=== PATIENT | male | born 1955 | race Caucasian/White ===

== ENCOUNTER → 2020-11-12 07:42 | Outpatient (CLI) | payer OTHER, SELFPAY ==
--- NOTE | 2020-11-12 07:43 | CT_ITS ---
PROCEDURE: CT HEART W CALCIUM SCORE CLINICAL HISTORY: eval for cad COMPARISON: No exams were available for comparison TECHNIQUE: Axial images obtained with sagittal and coronal reformats. All CT scans at the facility use one or more dose reduction, viz: automated exposure control, ma/kV adjustment per patient size (including targeted exams where dose is matched to indication, i.e. head), or iterative reconstruction technique. FINDINGS: The coronary artery calcification score is 229. Moderate calcific plaque burden with high cardiovascular disease risk. There are COPD changes with some centrilobular emphysema in the lung base on the left with some scarring and mild bronchial thickening. A noncalcified nodule is present in the left lower lobe at the major fissure region measuring 10 mm with an additional nodule in the left lower lobe posterior laterally at 5 mm. What appears to represent a hemangioma involves the T8 vertebral body. Aortic valve calcifications are noted as well. There is a 1.5 cm left renal cyst. IMPRESSION: Moderate calcific plaque burden with high cardiovascular disease risk COPD with centrilobular emphysematous change in the left lung base with indeterminate 10 mm nodule in the left lower lobe. Left lower lobe scarring also suspected. Suggest dedicated chest CT with contrast for further evaluation. Dictated by: Eric Hodges MD 11/12/2020 11:23 Eric Hodges MD in [place] 11/12/2020 11:23
--- NOTE | 2020-11-12 08:04 | CA_ITS ---
APPROVED REPORT School Treasurer: KRISTIN Laterality: Bilateral Study Quality: Adequate Indications: carotid bruit Risk Factors Hypertension: Hyperlipidemia Smoking Doppler Spectral Velocity Analysis ECA (R) 166.80/23.50 cm/s ECA (L) 122.30/24.10 cm/s dICA (R) 78.60/29.20 cm/s dICA (L) 118.50/28.90 cm/s Yanick (R) 102.50/35.20 cm/s Yanick (L) 93.40/30.80 cm/s pICA (R) 87.50/23.20 cm/s pICA (L) 77.10/21.20 cm/s dCCA (R) 79.70/18.00 cm/s dCCA (L) 79.30/17.20 cm/s pCCA (R) 105.40/18.00 cm/s pCCA (L) 79.30/21.70 cm/s Vert (R) 32.60/9.10 cm/s Vert (L) 68.40/17.30 cm/s ICA/CCA 1.29 ICA/CCA 1.49 Findings Study suggets 20-49% stenosis of the right internal carotid artery. Study suggets <20% stenosis of the left internal carotid artery. Duplex evaluation demonstrates antegrade flow of the bilateral vertebral arteries. B-Mode Ultrasound demonstrates mild to moderate intraluminal plaque in the right internal carotid artery. Conclusion Study suggets 20-49% stenosis of the right internal carotid artery. Study suggets <20% stenosis of the left internal carotid artery. Duplex evaluation demonstrates antegrade flow of the bilateral vertebral arteries. B-Mode Ultrasound demonstrates mild to moderate intraluminal plaque in the right internal carotid artery. Electronically signed by : Eric Hodges MD 11/12/2020 16:03:19
--- NOTE | 2020-11-12 08:04 | CA_ITS ---
APPROVED REPORT EXAM: Comprehensive 2D, Doppler, and color-flow Echocardiogram Back Tacker: Emily Ospina CRT Ht: 5 ft 11 in Wt: 178lbs BSA: 2.01 BP: 178/89 mmHg Indications: Abnormal ECG, Hyperlipidemia, Hypertension/HDD, smoker 2D Dimensions LVOT 2.03 cm (M/F) 1.5-2.5 LA Volume 72.10 mL LA Volume Index 35.90 mL/m2 (M/F) 16-34 M-Mode Dimensions RVDd 3.29 cm (0.9-2.6) LA Diam 4.88 cm (1.9-4.0) LVDd 5.01 cm (3.5-5.7) Ao Diam 3.71 cm (2.0-3.7) LVDs 3.15 cm (3.5-5.7) IVSd 1.22 cm (0.6-1.1) PWd 1.04 cm (0.6-1.1) EF (Teich) 66.80% FS 37.10% EDV (Teich) 118.80 mL ESV (Teich) 39.40 mL LV Diastology E Decel Time 237.00 (160-240 msec) E/A Ratio 2.74 MED E' 5.20 (< 7 cm/sec) MED A' 11.80 cm/s E'/MED E' Ratio 19.73 (>14) LAT E' 9.70 (<10 cm/sec) LAT A' 7.60 cm/s E/LAT E' Ratio 10.58 (>14) Aortic Valve LVOT Max 159.00 (70-110 cm/s) LVOT VTI 35.62 cm AoV Peak Martin. 212.00 (50-130 cm/s) AO Peak GR. 18.00 mmHg AO Mean GR. 7.70 (<5 mmHg) AO VTI 46.21 (18-25 cm) IRA (VTI) 2.49 (2.5-4.5 cm2) Mitral Valve MV E Max Martin. 103.00 (40-130 cm/s) MV A Velocity 37.00 (40-130 cm/s) E/A Ratio 2.74 MV Decel. Time 237.00 (160-240 ms) MV PHT 69.00 ms Pulmonary Valve PV Peak Velocity 135.00 (50-150 cm/s) Tricuspid Valve TR P. Velocity 283.00 cm/s Left Ventricle Left atrium is mildly enlarged, left ventricle is normal size, mild concentric left ventricular hypertrophy, visually estimated ejection fraction 55% with no regional wall motion abnormality, grade 1 diastolic dysfunction seen without tissue Doppler evidence of raise left atrial pressure. Right Ventricle Right atrium and right ventricle are mildly enlarged with normal contractility. Aortic Valve Aortic valve is minimally thickened and fibrosed, there is no aortic stenosis or aortic insufficiency. Mitral Valve Mitral valve grossly normal, there is mild mitral regurgitation. Tricuspid Valve Tricuspid valve grossly normal, there is mild tricuspid regurgitation, tricuspid regurgitation jet velocity is inadequate for calculation of the right ventricular systolic pressure. Pulmonic Valve Pulmonic valve is poorly visualized. Great Vessels Aortic root is normal size. Pericardium No significant pericardial effusion noted. Conclusion 1. Mild biatrial enlargement, normal left ventricular size, mild concentric left ventricular hypertrophy, visually estimated ejection fraction 55% with no regional wall motion abnormality, grade 1 diastolic dysfunction seen without tissue Doppler evidence of raise left atrial pressure. 2. Mildly enlarged right ventricle with normal contractility. 3. Thickened and calcified aortic valve without aortic stenosis or aortic insufficiency. 4. Mild mitral and tricuspid regurgitation. 4. No significant pericardial effusion noted. Electronically signed by : Frandy Rodriguez, 11/12/2020 16:06:57
== END ==
PROVIDERS: PCP Nurse Practitioner Family; Visit Provider Internal Medicine Cardiovascular Disease
DX: R01.1 Cardiac murmur, unspecified (principal); R09.89 Other specified symptoms and signs involving the circulatory and respiratory systems; R94.31 Abnormal electrocardiogram [ECG] [EKG]; E78.5 Hyperlipidemia, unspecified; I10 Essential (primary) hypertension; N28.9 Disorder of kidney and ureter, unspecified; Z86.39 Personal history of other endocrine, nutritional and metabolic disease; Z87.891 Personal history of nicotine dependence; Z13.6 Encounter for screening for cardiovascular disorders
CPT/HCPCS: 75571; 93306; 93880

== ENCOUNTER → 2020-11-12 09:15 | Outpatient (CLI) | payer SELFPAY | PROVIDERS: PCP Nurse Practitioner Family; Visit Provider Internal Medicine Cardiovascular Disease | DX: R01.1 Cardiac murmur, unspecified (principal); R94.31 Abnormal electrocardiogram [ECG] [EKG]; R09.89 Other specified symptoms and signs involving the circulatory and respiratory systems; E78.5 Hyperlipidemia, unspecified ==

== ENCOUNTER → 2020-11-27 09:58 | Outpatient (CLI) | payer OTHER, SELFPAY ==
[2020-11-27 11:58] LABS: Anion Gap 12.8 mEq/L (5-15); Blood Urea Nitrogen 16 mg/dl (9-20); Calcium 9.7 mg/dl (8.4-10.2); Carbon Dioxide 27 mmol/L (22.0-30.0); Chloride 107 mmol/L (98-107); Estimated Glomerular Filt Rate 68 ml/min (>60); GFR (African American) 82 ML/MIN (>60); Glucose 95 mg/dl (74-100); Potassium 4.8 mmoL/L (3.5-5.1); Sodium 142 mmol/L (136-145)
== END ==
PROVIDERS: Visit Provider Internal Medicine Cardiovascular Disease
DX: R09.89 Other specified symptoms and signs involving the circulatory and respiratory systems (principal); R01.1 Cardiac murmur, unspecified; R94.31 Abnormal electrocardiogram [ECG] [EKG]; I10 Essential (primary) hypertension; E78.2 Mixed hyperlipidemia; N28.9 Disorder of kidney and ureter, unspecified; Z86.39 Personal history of other endocrine, nutritional and metabolic disease; Z87.891 Personal history of nicotine dependence
CPT/HCPCS: 36415; 80048

== ENCOUNTER → 2020-12-15 11:51 | Outpatient (CLI) | payer OTHER, SELFPAY ==
--- NOTE | 2020-12-15 | CA_ITS ---
APPROVED REPORT Exam: Exercise Treadmill Technologist: Katharine Cordova Ht: 5 ft 11 in Wt: 177 lbs BSA: 2.00 m2 HR: 44 bpm BP: 167/75 mmHg Indications: Abnormal ekg, CAD Medical History Medications: Amlodipine,,,,, Lisinopril,,,,, Aspirin,,,,, BisOPROLOL,,,,, RoSUVASTATIN,,,,, Levothyoxine,,,,, Stress Test Details Test: Howard HR Resting HR: 46 bpm Max Heart Rate (APMHR): 157.106056 bpm Max HR Achieved: 92 bpm Target HR (85% APMHR): 133.657285 bpm % of APMHR: 58.60 Recovery HR: 51 bpm BP Resting BP: 167.0/75.0 mmHg Max BP: 190.0/80.0 mmHg Recovery BP: 147.0/69.0 mmHg ECG Resting ECG: Marked sinus bradycardia, First degree AV block, LVH, NS ST abnormalities, PAC, PVC Clinical Exercise duration: 08:45 min Highest Stage Achieved: Exercise capacity: 10.1 METs Stress ECG Conclusion Patient exercised 8:45 on Howard protocol. Test stopped due to shortness of air, leg fatigue. Symptoms: No chest pain. Arrhythmias/Ectopy: Occasional PAC and PVC. ST-T Changes: Mild exaggeration of baseline ST abnormalities with a total of [address] depression inferiorly and laterally. Conclusion: Non-diagnostic Exercise stress. Blunted heart rate response on Bisoprolol. Myoview images reported separately. Test Summary RECOVERY 04:00 0.0 0.0 53 . 157/ 69 . . REST . . . . . . . Standing REST 04:50 0.0 0.0 46 . 167/ 75 . . Stage 1 01:00 10.0 1.7 61 . . . . Stage 1 02:00 10.0 1.7 65 . . . . Stage 1 03:00 10.0 1.7 69 . 190/ 80 . . Stage 2 01:00 12.0 2.5 72 . . . . Stage 2 02:00 12.0 2.5 76 . . . . Stage 2 03:00 12.0 2.5 77 . 190/ 76 . . Stage 3 01:00 14.0 3.4 82 . . . . Stage 3 . . . . . . . Myoview Injected Stage 3 02:00 14.0 3.4 89 . . . . Stage 3 02:45 14.0 3.4 90 . . . Stop exercise at 08:45 RECOVERY 01:00 0.0 0.0 76 . 182/ 60 . . RECOVERY 02:00 0.0 0.0 66 . 182/ 60 . . RECOVERY 03:00 0.0 0.0 56 . 182/ 60 . . RECOVERY 04:00 0.0 0.0 53 . 157/ 69 . . RECOVERY 05:00 0.0 0.0 50 . 157/ 69 . . RECOVERY 05:34 0.0 0.0 52 . 147/ 69 . . Electronically signed by : Frandy Rodriguez MD 12/15/2020 19:25:11
--- NOTE | 2020-12-15 11:51 | NM_ITS ---
APPROVED REPORT Exam: Nuclear Stress Test Indication: abn ekg Patient Location: Outpatient Stress Tech: Katharine Cordova IN Tech:Giulia More, CECIT, RT (R)(N) Ht: 5 ft 11 in Wt: 172 lbs HR: 44 bpm BP: 167/75 mmHg BSA: 1.98 m2 BMI: 23.9 History: abn ekg Procedure: Patient exercised on Howard protocol 8.45 minutes and sec, resting heart rate 44 bpm, resting blood pressure 167/75 mmHg, with exercise maximum heart rate achived was 92 bpm which is 59 % of the maximum predicted heart rate and blood pressure was 190/80 mmHg. Test was stopped due to soa & leg fatigue. Patient denied any complaint of chest pain. Patient has Good exercise capacity, achieved 10.1 METs of workload on treadmill, the blood pressure response to exercise was Adequate. Electrocardiogram Resting electrocardiogram showed sinus rhythm, with exercise there is less than 1.[address] segment depression noted from the baseline EKG. The EKG portion of the exercise Myoview was nondiagnostic as patient did not achieve the target heart rate. Cardiac Stress and Resting SPECT Images: Cardiac Stress and Resting SPECT images were obtained using technetium 99m Myoview 32.6 mCi stress and 10.36 mCi at rest. Gated SPECT for analysis of segmental wall motion and calculation of the ejection fraction also done. Prone images were also obtained. Cardiac stress and resting SPECT images show uniform myocardial activity without segmental perfusion abnormality, computer derived ejection fraction is 51% with no regional wall motion abnormality, right ventricle is normal size and contractility. Conclusion: 1. The EKG portion of the exercise Myoview was nondiagnostic as patient did not achieve the target heart rate, patient has good exercise capacity achieved 10.1 METs of workload on treadmill, the blood pressure response to exercise was adequate, there was no exercise-induced chest discomfort. 2. No scintigraphic evidence of reversible ischemia seen at this level of exercise, computer derived ejection fraction 51% with no regional wall motion abnormality, right ventricle is normal size and contractility. Electronically signed by : Frandy Rodriguez MD 12/15/2020 19:40:35
--- NOTE | 2020-12-15 13:33 | HMH.ITSHM ---
Current Home Medications as stated by this patient Asa Galeana or patient portal representative. []BISOPROLOL ROSUVASTATIN ASA AMLODIPINE LEVOTHYROXINE LISINOPRIL
== END ==
PROVIDERS: PCP Nurse Practitioner Family; Visit Provider Internal Medicine Cardiovascular Disease
DX: R01.1 Cardiac murmur, unspecified (principal); R94.31 Abnormal electrocardiogram [ECG] [EKG]; R09.89 Other specified symptoms and signs involving the circulatory and respiratory systems; I10 Essential (primary) hypertension; E78.2 Mixed hyperlipidemia; N28.9 Disorder of kidney and ureter, unspecified; Z86.39 Personal history of other endocrine, nutritional and metabolic disease; Z87.891 Personal history of nicotine dependence
CPT/HCPCS: 78452; 93017; A9502

== ENCOUNTER → 2021-01-07 07:02 | Outpatient (CLI) | payer OTHER, SELFPAY ==
[2021-01-07 13:17] LABS: Chloride 104 mmol/L (98-107); Potassium 4.6 mmoL/L (3.5-5.1); Sodium 141 mmol/L (136-145)
[2021-01-07 13:20] LABS: Anion Gap 13.6 mEq/L (5-15); Blood Urea Nitrogen 16 mg/dl (9-20); Carbon Dioxide 28 mmol/L (22.0-30.0); Estimated Glomerular Filt Rate 68 ml/min (>60); GFR (African American) 82 ML/MIN (>60)
[2021-01-07 13:21] LABS: Calcium 9.6 mg/dl (8.4-10.2); Glucose 96 mg/dl (74-100)
== END ==
PROVIDERS: Visit Provider Internal Medicine Cardiovascular Disease
DX: R09.89 Other specified symptoms and signs involving the circulatory and respiratory systems (principal); R01.1 Cardiac murmur, unspecified; I10 Essential (primary) hypertension; E78.5 Hyperlipidemia, unspecified; N28.9 Disorder of kidney and ureter, unspecified; R93.1 Abnormal findings on diagnostic imaging of heart and coronary circulation; R94.31 Abnormal electrocardiogram [ECG] [EKG]; Z86.39 Personal history of other endocrine, nutritional and metabolic disease; Z87.891 Personal history of nicotine dependence
CPT/HCPCS: 36415; 80048

== ENCOUNTER → 2021-01-19 07:07 | Outpatient (CLI) | payer OTHER, SELFPAY ==
[2021-01-19 13:56] LABS: Basophils # 0.1 K/mm3 (0-0.2); Basophils % 1.2 % (0.1-2.0); Eosinophils # 0.6 K/mm3 (0.0-0.4); Eosinophils % 10.5 % (0.1-12.0); Hematocrit 46.3 % (42.0-52.0); Hemoglobin 15.2 g/dL (14.1-18.0); Lymphocytes # 2.3 K/mm3 (0.7-4.5); Lymphocytes % 38.6 % (10-50); Mean Corpuscular HGB Conc 32.9 g/dL (31.8-35.4); Mean Corpuscular Hemoglobin 29.3 pg (27.0-31.2); Mean Corpuscular Volume 89.3 fl (80-94); Mean Platelet Volume 9.1 fl (7.4-10.4); Monocytes # 0.4 K/mm3 (0.1-1.0); Monocytes % 7.2 % (1.7-9.3); Neutrophils # 2.5 K/mm3 (1.8-7.8); Neutrophils % 42.6 % (37.0-80.0); Platelet Count 366 K/mm3 (142-424); Red Blood Count 5.19 M/mm3 (4.60-6.20); Red Cell Distribution Width 13.3 % (11.5-17.5); White Blood Count 5.9 K/mm3 (4.8-10.8)
[2021-01-19 14:02] LABS: Chloride 105 mmol/L (98-107)
[2021-01-19 14:03] LABS: Potassium 4.3 mmoL/L (3.5-5.1); Sodium 140 mmol/L (136-145)
[2021-01-19 14:05] LABS: Alanine Aminotransferase 31 U/L (12-78); Albumin Level 3.9 g/dl (3.5-5.0); Albumin/Globulin Ratio 1.3 (1.1-1.8); Alkaline Phosphatase 92 U/L (38-126); Anion Gap 12.3 mEq/L (5-15); Aspartate Amino Transferase 35 U/L (17-59); Bilirubin,Total 0.3 mg/dl (0.2-1.3); Blood Urea Nitrogen 16 mg/dl (9-20); Calcium 9.8 mg/dl (8.4-10.2); Carbon Dioxide 27 mmol/L (22.0-30.0); Cholesterol 145 mg/dl (140-200); Estimated Glomerular Filt Rate 75 ml/min (>60); GFR (African American) 91 ML/MIN (>60); Globulin 3.1 g/dL (1.3-3.2); Glucose 96 mg/dl (74-100); Triglycerides 95 mg/dl (30-150); VLDL Cholesterol 19 mg/dL (0-40)
[2021-01-19 14:06] LABS: Chol/HDL Ratio 3.5 (1-3.5); HDL Cholesterol 42 mg/dl (40-60)
[2021-01-19 14:16] LABS: Direct LDL Cholesterol 71.37 mg/dL (100-129)
[2021-01-19 14:23] LABS: Triiodothryronine (T3) Uptake 33 % (23.5-40.5)
[2021-01-19 14:24] LABS: Free Thyroxine Index 4.5 ug/dL (5.93-13.13); T4 (Thyroxine) 13.6 ug/dl (5.53-11.0)
[2021-01-19 14:37] LABS: Thyroid Stimulating Hormone 0.05 uIU/mL (0.465-4.68)
== END ==
PROVIDERS: Visit Provider Nurse Practitioner Family
DX: I10 Essential (primary) hypertension (principal); E03.9 Hypothyroidism, unspecified; E78.5 Hyperlipidemia, unspecified
CPT/HCPCS: 36415; 80053; 80061; 84436; 84443; 84479; 85025

== ENCOUNTER → 2021-02-26 14:08 | Outpatient (CLI) | payer OTHER, SELFPAY ==
--- NOTE | 2021-02-26 14:08 | CT_ITS ---
PROCEDURE: CT CHEST WO CON CLINICAL INDICATION: 3-month follow-up for lung nodule COMPARISON: CT CT HEART W CALCIUM SCORE from 11/12/2020 TECHNIQUE: Axial images obtained with sagittal and coronal reformats. All CT scans at the facility use one or more dose reduction, viz: automated exposure control, ma/kV adjustment per patient size (including targeted exams where dose is matched to indication, i.e. head), or iterative reconstruction technique. FINDINGS: HEART AND MEDIASTINAL STRUCTURES: Coronary artery calcifications. Aortic valve calcifications. LUNGS AND PLEURAL SPACES: COPD changes with scattered areas of scarring. In the left lung base there is a linear area of density at 1.70 cm by 0.5 cm likely related to some bronchovascular thickening. A 7 mm opacity is present in left lung base laterally also may be related to bronchovascular thickening as opposed to a true nodule. No suspicious nodule apparent. There is some scarring in the lingula. BONY STRUCTURES: Degenerative changes thoracic spine with hemangioma involvement T8. UPPER ABDOMEN: Left renal cyst at 1 and 2 cm. ADDITIONAL FINDINGS: No other significant abnormalities. IMPRESSION: COPD with scattered areas of scarring. Linear opacities in the left lung base which may be related to bronchovascular thickening/scarring. No suspicious nodule evident. Suggest 12 month follow-up to confirm stability. Coronary artery and aortic valve calcification. Dictated by: Eric Hodges MD 02/28/2021 09:26 Eric Hodges MD in [place] 02/28/2021 09:26
--- NOTE | 2021-02-26 15:00 | PC.NURSE ---
PFT Completed without complications. Albuterol 0.083% given via HHN, per protocol, tolerated tx well
== END ==
PROVIDERS: PCP Nurse Practitioner Family; Visit Provider Internal Medicine Pulmonary Disease
DX: R91.8 Other nonspecific abnormal finding of lung field (principal)
CPT/HCPCS: 71250; 94060; 94726; 94729

== ENCOUNTER 2023-08-31 10:30 | Outpatient (CLI) | payer OTHER, SELFPAY ==
[2023-08-31 11:16] LABS: Alanine Aminotransferase 23 U/L (12-78); Alkaline Phosphatase 71 U/L (38-126); Aspartate Amino Transferase 31 U/L (17-59); Bilirubin,Direct 0.1 mg/dl (0.0-0.4); Bilirubin,Indirect 0.4 mg/dL (0.0-0.9); Bilirubin,Total 0.5 mg/dl (0.2-1.3); Bilirubin,Unconjugated 0.4 mg/dL (0.0-1.1); Chol/HDL Ratio 3.5 (1-3.5); Cholesterol 185 mg/dl (140-200); HDL Cholesterol 53 mg/dl (40-60); Total Protein,Serum 7.1 g/dl (6.3-8.2); Triglycerides 88 mg/dl (30-150); VLDL Cholesterol 18 mg/dL (0-40)
[2023-08-31 11:27] LABS: Direct LDL Cholesterol 106.33 mg/dL (100-129)
== END 2023-08-31 23:59 | disposition home or self-care (01) ==
LOC: LAB 10:31
PROVIDERS: PCP Nurse Practitioner; Visit Provider Nurse Practitioner Family
DX: R00.1 Bradycardia, unspecified (principal); I65.29 Occlusion and stenosis of unspecified carotid artery; R09.89 Other specified symptoms and signs involving the circulatory and respiratory systems; I11.9 Hypertensive heart disease without heart failure; I25.10 Atherosclerotic heart disease of native coronary artery without angina pectoris; R94.31 Abnormal electrocardiogram [ECG] [EKG]; N28.9 Disorder of kidney and ureter, unspecified; E78.2 Mixed hyperlipidemia; Z87.891 Personal history of nicotine dependence
CPT/HCPCS: 36415; 80061; 80076

== ENCOUNTER 2023-09-07 12:43 | Outpatient (CLI) | payer OTHER, SELFPAY ==
--- NOTE | 2023-09-07 12:43 | CA_ITS ---
FINAL REPORT TECHNIQUE: Color Doppler, duplex Doppler and lujan scale sonography of the bilateral neck vasculature was performed. Velocities were measured in the carotid arteries. Stenosis evaluation based on velocity criteria. CLINICAL HISTORY: KEVIN, HTN, HLD, murmur, ex smoker. COMPARISON: None FINDINGS: The peak systolic velocity of the right common carotid artery is 107 cm/sec and internal carotid artery 109 cm/sec. The diastolic velocity in the internal carotid artery is 34 cm/sec. The ICA/CCA ratio is 1.98. Visually, a small amount of plaque is seen. These findings are consistent with less than 50% stenosis. The external carotid artery is patent. The right vertebral artery is patent with antegrade flow. The peak systolic velocity of the left common carotid artery is 127 cm/sec and internal carotid artery 79 cm/sec. The diastolic velocity in the internal carotid artery is 31 cm/sec. The ICA/CCA ratio is 1.15. Visually, a small amount of plaque is seen. These findings are consistent with less than 50% stenosis. The external carotid artery is patent. The left vertebral artery is patent with antegrade flow. IMPRESSION: No evidence of significant carotid stenosis. Bilateral patent vertebral arteries. If indicated, CTA or MRA could further evaluate. Reviewed, Interpreted and Dictated by Abdias Mendes MD Transcribed by Deborah Woodall Authenticated and [facility]
== END 2023-09-07 23:59 | disposition home or self-care (01) ==
PROVIDERS: PCP Nurse Practitioner; Visit Provider Nurse Practitioner Family
DX: R09.89 Other specified symptoms and signs involving the circulatory and respiratory systems (principal); I65.29 Occlusion and stenosis of unspecified carotid artery; R00.1 Bradycardia, unspecified; I11.9 Hypertensive heart disease without heart failure; I25.10 Atherosclerotic heart disease of native coronary artery without angina pectoris; R94.31 Abnormal electrocardiogram [ECG] [EKG]; N28.9 Disorder of kidney and ureter, unspecified; E78.2 Mixed hyperlipidemia; Z87.891 Personal history of nicotine dependence
CPT/HCPCS: 93880

== ENCOUNTER 2024-03-21 11:48 | Outpatient (CLI) | payer OTHER, SELFPAY ==
[2024-03-21 12:42] LABS: Alanine Aminotransferase 21 U/L (12-78); Albumin Level 3.9 g/dl (3.5-5.0); Alkaline Phosphatase 66 U/L (38-126); Aspartate Amino Transferase 32 U/L (17-59); Bilirubin,Direct 0.3 mg/dl (0.0-0.4); Bilirubin,Indirect 0.2 mg/dL (0.0-0.9); Bilirubin,Total 0.5 mg/dl (0.2-1.3); Bilirubin,Unconjugated 0.2 mg/dL (0.0-1.1); Chol/HDL Ratio 4.1 (1-3.5); Cholesterol 169 mg/dl (140-200); HDL Cholesterol 41 mg/dl (40-60); Total Protein,Serum 6.7 g/dl (6.3-8.2); Triglycerides 80 mg/dl (30-150); VLDL Cholesterol 16 mg/dL (0-40)
[2024-03-21 12:53] LABS: Direct LDL Cholesterol 107.75 mg/dL (100-129)
== END 2024-03-21 23:59 | disposition home or self-care (01) ==
LOC: LAB 11:49
PROVIDERS: PCP Nurse Practitioner; Visit Provider Nurse Practitioner Family
DX: I65.23 Occlusion and stenosis of bilateral carotid arteries (principal); R00.1 Bradycardia, unspecified; I25.10 Atherosclerotic heart disease of native coronary artery without angina pectoris; R94.31 Abnormal electrocardiogram [ECG] [EKG]; N28.9 Disorder of kidney and ureter, unspecified; R09.89 Other specified symptoms and signs involving the circulatory and respiratory systems; I10 Essential (primary) hypertension; E78.2 Mixed hyperlipidemia; I11.9 Hypertensive heart disease without heart failure
CPT/HCPCS: 36415; 80061; 80076

== ENCOUNTER 2024-09-19 09:57 | Outpatient (CLI) | payer OTHER, SELFPAY ==
[2024-09-19 10:55] LABS: Basophils # 0.1 K/mm3 (0-0.2); Eosinophils # 0.5 Kmm3 (0.0-0.4); Eosinophils % 9.6 % (0.1-12.0); Hematocrit 42.9 % (42.0-52.0); Hemoglobin 14.1 g/dL (14.1-18.0); Immature Granulocytes # 0.02 10^3uL; Immature Granulocytes % 0.4 %; Lymphocytes # 1.6 K/mm3 (0.7-4.5); Lymphocytes % 31.3 % (10-50); Mean Corpuscular HGB Conc 32.9 g/dL (31.8-35.4); Mean Corpuscular Hemoglobin 28.6 pg (27.0-31.2); Mean Platelet Volume 9.6 fl (7.4-10.4); Monocytes # 0.6 K/mm3 (0.1-1.0); Neutrophils # 2.3 K/mm3 (1.8-7.8); Neutrophils % 46.7 % (37.0-80.0); Nucleated Red Blood Cells # 0 10^3/uL; Nucleated Red Blood Cells % 0 %; Platelet Count 335 K/mm3 (142-424); Red Blood Count 4.93 M/mm3 (4.60-6.20); Red Cell Distribution Width-SD 41.1 fL
[2024-09-19 11:11] LABS: Alanine Aminotransferase 29 U/L (12-78); Alkaline Phosphatase 74 U/L (38-126); Anion Gap 12.6 mEq/L (5-15); Aspartate Amino Transferase 40 U/L (17-59); Bilirubin,Direct 0.2 mg/dl (0.0-0.4); Bilirubin,Indirect 0.4 mg/dL (0.0-0.9); Bilirubin,Total 0.6 mg/dl (0.2-1.3); Bilirubin,Unconjugated 0.4 mg/dL (0.0-1.1); Blood Urea Nitrogen 19 mg/dl (9-20); Calcium 9.8 mg/dl (8.4-10.2); Carbon Dioxide 27 mmol/L (22.0-30.0); Chloride 107 mmol/L (98-107); Chol/HDL Ratio 2.4 (1-3.5); Cholesterol 94 mg/dl (140-200); Estimated Glomerular Filt Rate 67 ml/min (>60); GFR (African American) 81 ML/MIN (>60); Glucose 89 mg/dl (74-100); HDL Cholesterol 39 mg/dl (40-60); Potassium 4.6 mmoL/L (3.5-5.1); Sodium 142 mmol/L (136-145); Total Protein,Serum 7.1 g/dl (6.3-8.2); Triglycerides 69 mg/dl (30-150); VLDL Cholesterol 14 mg/dL (0-40)
[2024-09-19 11:22] LABS: Direct LDL Cholesterol 31.01 mg/dL (100-129)
[2024-09-19 11:29] LABS: Free T4 (Free Thyroxine) 1.85 ng/dl (0.78-2.19)
[2024-09-19 11:42] LABS: Thyroid Stimulating Hormone 0.54 uIU/mL (0.465-4.68)
== END 2024-09-19 23:59 | disposition home or self-care (01) ==
LOC: LAB 09:58
PROVIDERS: PCP Nurse Practitioner; Visit Provider Nurse Practitioner Family
DX: I25.10 Atherosclerotic heart disease of native coronary artery without angina pectoris (principal); R00.1 Bradycardia, unspecified
CPT/HCPCS: 36415; 80048; 80061; 80076; 84439; 84443; 85025

== ENCOUNTER 2025-03-27 07:36 | Outpatient (CLI) | payer OTHER, SELFPAY ==
--- OUTSIDE RECORDS SUMMARY | 2025-03-27 07:39 | XMS_ITS | Continuity of Care Document ---
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 Plan of Treatment Reminders Order Date Submit Date Provider Last Modified By Organization Details Last Modified Time Details Appointments None recorded. Lab lipid panel, serum [facility]24 025 [facility] [address] [place], [address], 5 08:11:46 CBC w/ auto diff 2024 025 [place] [facility] [address] [place] [address], [id number], 5 08:11:45 CMP, serum or plasma 2024 025 [place] [facility] [address] [place] [address], [id number], 5 08:11:46 TSH + free T4, serum 2024 025 [place] [facility] [address] [place] [address], [address], 5 08:11:45 HbA1c (hemoglobin A1c), blood 2024 025 [place] [facility] [address] [place] [address], [address], 08:11:47 vitamin D, 25-hydroxy, total, serum 2024 [facility]), [address] [place] [address], [address], 08:11:48 PSA, total, serum or plasma 2024 [facility]), [address] [place] [address], [address], 5 08:11:48 cobalamin and folate panel, serum 2024 [facility]), [address] [place] [address], [address], 08:11:47 Referral None recorded. Procedures None recorded. Surgeries None recorded. Imaging None recorded. Medication Orders ergocalcife rol (vitamin D2) 1,250 mcg (50,000 unit) capsule 2024 [facility], [address] [place] [address], [id number], 13:03:04 amlodipine 5 mg tablet 2024 [facility], [address] [place] [address], [address], 13:03:00 aspirin 81 mg tablet,abbie yed release 2024 [facility], [address] [place] [address], [address], 13:03:03 bisoprolol fumarate 5 mg tablet 2024 [facility], [address] [place] [address], [id number], 13:03:01 lisinopril 20 mg tablet 2024 [facility], [address] [place] [address], [id number], 13:03:00 triamterene 37.5 mg-hydrochl orothiazide 25 mg tablet 2024 025 [facility], [address] [place] [address], [id number], 13:03:03 levothyroxi ne 137 mcg tablet 2024 025 [facility], [address] [place] [address], [id number], 13:03:02 Patient TargetsNo targets recorded. Patient InstructionsNo instructions recorded. Reason for Referral None Reported. Results Created Date Observation Date Name Description Value Unit Range Abnormal Flag Note LastModifiedBy Organization Detail LastModifiedTime 02/22/2002/22/2025 TSH+F REE T4 TSH 0.543 uIU/m L 0.450- 4.500 normal Not Available [facility] ([facility]) [address] [place], [address], 02/22/2025 08:11:44 02/22/2002/22/2025 TSH+F REE T4 T4,free(dire ct) 1.60 NG/dL 0.82-1 .77 normal Not Available [facility] ([facility]) [address] [place], [address], 02/22/2025 08:11:44 02/22/2002/22/2025 CBC WITH DIFFE RENTI AL/PL ATELE T WBC 4.9 x10e3 /uL 3.4-10 .8 normal Not Available [facility] ([facility]) [address] [place], [address], 02/22/2025 08:11:45 02/22/20 25 02/22/2025 CBC WITH DIFFE RENTI AL/PL ATELE T RBC 4.81 x10e6 /uL 4.14-5 .80 normal Not Available [facility] ([facility]) [address] [place], [address], 02/22/2025 08:11:45 02/22/20 25 02/22/2025 CBC WITH DIFFE RENTI AL/PL ATELE T hemoglobin 14.0 g/dL 13.0-1 7.7 normal Not Available [facility] ([facility]) [address] [place], [address], 02/22/2025 08:11:45 02/22/2002/22/2025 CBC WITH DIFFE RENTI AL/PL ATELE T hematocrit 44.4 % 37.5-5 1.0 normal Not Available [facility] ([facility]) [address] [place], [address], 02/22/2025 08:11:45 02/22/20 25 02/22/2025 CBC WITH DIFFE RENTI AL/PL ATELE T MCV 92 fL 79-97 normal Not Available [facility] ([facility]) [address] [place], [address], 02/22/2025 08:11:45 02/22/20 25 02/22/2025 CBC WITH DIFFE RENTI AL/PL ATELE T MCH 29.1 pg 26.6-3 3.0 normal Not Available [facility] ([facility]) [address] [place], [address], 02/22/2025 08:11:45 02/22/20 25 02/22/2025 CBC WITH DIFFE RENTI AL/PL ATELE T MCHC 31.5 g/dL 31.5-3 5.7 normal Not Available [facility] ([facility]) [address] [place], [address], 02/22/2025 08:11:45 02/22/20 25 02/22/2025 CBC WITH DIFFE RENTI AL/PL ATELE T RDW 13.1 % 11.6-1 5.4 Not Available [facility] ([facility]) [address] [facility], [place], [address], 02/22/2025 08:11:45 02/22/20 25 02/22/2025 CBC WITH DIFFE RENTI AL/PL ATELE T platelets 318 x10e3 /uL 150-45 0 normal Not Available [facility] ([facility]) [address] [facility], [place], [address], 02/22/2025 08:11:45 02/22/20 25 02/22/2025 CBC WITH DIFFE RENTI AL/PL ATELE T neutrophils 47 % not estab. normal Not Available [facility] ([facility]) [address] [facility], [place], [address], 02/22/2025 08:11:45 02/22/20 25 02/22/2025 CBC WITH DIFFE RENTI AL/PL ATELE T lymphs 32 % not estab. normal Not Available [facility] ([facility]) [address] [facility], [place], [address], 02/22/2025 08:11:45 02/22/20 25 02/22/2025 CBC WITH DIFFE RENTI AL/PL ATELE T monocytes 10 % not estab. normal Not Available [facility] ([facility]) [address] [facility], [place], [address], 02/22/2025 08:11:45 02/22/20 25 02/22/2025 CBC WITH DIFFE RENTI AL/PL ATELE T eos 10 % not estab. normal Not Available [facility] ([facility]) [address] [facility], [place], [address], 02/22/2025 08:11:45 02/22/20 25 02/22/2025 CBC WITH DIFFE RENTI AL/PL ATELE T basos 1 % not estab. normal Not Available [facility] ([facility]) [address] [facility], [place], [address], 02/22/2025 08:11:45 02/22/20 25 02/22/2025 CBC WITH DIFFE RENTI AL/PL ATELE T immature cells MANAGED CARE COORDINATOR Not Available [facility] ([facility]) [address] [facility], [place], [address], 02/22/2025 08:11:45 02/22/20 25 02/22/2025 CBC WITH DIFFE RENTI AL/PL ATELE T neutrophils (absolute) 2.3 x10e3 /uL 1.4-7. 0 normal Not Available [facility] ([facility]) [address] [facility], [place], [address], 02/22/2025 08:11:45 02/22/20 25 02/22/2025 CBC WITH DIFFE RENTI AL/PL ATELE T lymphs (absolute) 1.6 x10e3 /uL 0.7-3. 1 normal Not Available [facility] ([facility]) [address] [facility], [place], [address], 02/22/2025 08:11:45 02/22/20 25 02/22/2025 CBC WITH DIFFE RENTI AL/PL ATELE T monocytes(ab solute) 0.5 x10e3 /uL 0.1-0. 9 normal Not Available [facility] ([facility]) [address] [facility], [place], [address], 02/22/2025 08:11:45 02/22/20 25 02/22/2025 CBC WITH DIFFE RENTI AL/PL ATELE T eos (absolute) 0.5 x10e3 /uL 0.0-0. 4 above high normal Not Available [facility] ([facility]) [address] [facility], [place], [address], 02/22/2025 08:11:45 02/22/20 25 02/22/2025 CBC WITH DIFFE RENTI AL/PL ATELE T baso (absolute) 0.1 x10e3 /uL 0.0-0. 2 normal Not Available [facility] ([facility]) [address] [facility], [place], [address], 02/22/2025 08:11:45 02/22/20 25 02/22/2025 CBC WITH DIFFE RENTI AL/PL ATELE T immature granulocytes 0 % not estab. Not Available [facility] ([facility]) [address] [facility], [place], [address], 02/22/2025 08:11:45 02/22/20 25 02/22/2025 CBC WITH DIFFE RENTI AL/PL ATELE T immature grans (abs) 0.0 x10e3 /uL 0.0-0. 1 Not Available [facility] ([facility]) [address] [facility], [place], [address], 02/22/2025 08:11:45 02/22/20 25 02/22/2025 CBC WITH DIFFE RENTI AL/PL ATELE T NRBC MANAGED CARE COORDINATOR Not Available [facility] ([facility]) [address] [facility], [place], [address], 02/22/2025 08:11:45 02/22/20 25 02/22/2025 CBC WITH DIFFE RENTI AL/PL ATELE T hematology comments: MANAGED CARE COORDINATOR Not Available [facility] ([facility]) [address] [facility], [place], [address], 02/22/2025 08:11:45 02/22/20 25 02/22/2025 COMP. METAB OLIC PANEL (14) glucose 84 mg/dL 70-99 normal Not Available [facility] ([facility]) [address] [place], [address], 02/22/2025 08:11:46 02/22/20 25 02/22/2025 COMP. METAB OLIC PANEL (14) BUN 17 mg/dL 8-27 normal Not Available [facility] ([facility]) [address] [place], [address], 02/22/2025 08:11:46 02/22/20 25 02/22/2025 COMP. METAB OLIC PANEL (14) creatinine 1.03 mg/dL 0.76-1 .27 normal Not Available [facility] ([facility]) [address] [place], [address], 02/22/2025 08:11:46 02/22/20 25 02/22/2025 COMP. METAB OLIC PANEL (14) eGFR 80 mL/mi n/1.7 3 >59 normal Not Available [facility] ([facility]) [address] [place], [address], 02/22/2025 08:11:46 02/22/20 25 02/22/2025 COMP. METAB OLIC PANEL (14) BUN/creatini ne ratio 17 10-24 normal Not Available [facility] ([facility]) [address] [place], [address], 02/22/2025 08:11:46 02/22/20 25 02/22/2025 COMP. METAB OLIC PANEL (14) sodium 141 mmol/ L 134-14 4 normal Not Available [facility] ([facility]) [address] [place], [address], 02/22/2025 08:11:46 02/22/20 25 02/22/2025 COMP. METAB OLIC PANEL (14) potassium 4.5 mmol/ L 3.5-5. 2 normal Not Available [facility] ([facility]) [address] [place], [address], 02/22/2025 08:11:46 02/22/20 25 02/22/2025 COMP. METAB OLIC PANEL (14) chloride 105 mmol/ L 96-106 normal Not Available [facility] ([facility]) [address] [place], [address], 02/22/2025 08:11:46 02/22/20 25 02/22/2025 COMP. METAB OLIC PANEL (14) carbon dioxide, total 22 mmol/ L 20-29 normal Not Available [facility] ([facility]) [address] [place], [address], 02/22/2025 08:11:46 02/22/20 25 02/22/2025 COMP. METAB OLIC PANEL (14) calcium 9.7 mg/dL 8.6-10 .2 normal Not Available [facility] ([facility]) [address] [place], [address], 02/22/2025 08:11:46 02/22/20 25 02/22/2025 COMP. METAB OLIC PANEL (14) protein, total 7.0 g/dL 6.0-8. 5 normal Not Available [facility] ([facility]) [address] [place], [address], 02/22/2025 08:11:46 02/22/20 25 02/22/2025 COMP. METAB OLIC PANEL (14) albumin 4.0 g/dL 3.9-4. 9 normal Not Available [facility] ([facility]) [address] [place], [address], 02/22/2025 08:11:46 02/22/20 25 02/22/2025 COMP. METAB OLIC PANEL (14) globulin, total 3.0 g/dL 1.5-4. 5 Not Available [facility] ([facility] [address] [place], [address], 02/22/2025 08:11:46 02/22/20 25 02/22/2025 COMP. METAB OLIC PANEL (14) bilirubin, total 0.5 mg/dL 0.0-1. 2 normal Not Available [facility] ([facility]) [address] [place], [address], 02/22/2025 08:11:46 02/22/20 25 02/22/2025 COMP. METAB OLIC PANEL (14) alkaline phosphatase 83 IU/L 47-123 normal Not Available [facility] ([facility]) [address] [place], [address], 02/22/2025 08:11:46 02/22/20 25 02/22/2025 COMP. METAB OLIC PANEL (14) AST (SGOT) 25 IU/L 0-40 normal Not Available [facility] ([facility]) [address] [facility] [place], [address], 02/22/2025 08:11:46 02/22/20 25 02/22/2025 COMP. METAB OLIC PANEL (14) ALT (SGPT) 13 IU/L 0-44 normal Not Available [facility] ([facility]) [address] [place], [address], 02/22/2025 08:11:46 02/22/20 25 02/22/2025 LIPID PANEL cholesterol, total 103 mg/dL 100-19 9 normal Not Available [facility] ([facility]) [address] [place], [address], 02/22/2025 08:11:46 02/22/20 25 02/22/2025 LIPID PANEL triglyceride s 60 mg/dL 0-149 normal Not Available [facility] ([facility]) [address] [place], [address], 02/22/2025 08:11:46 02/22/20 25 02/22/2025 LIPID PANEL HDL cholesterol 46 mg/dL >39 normal Not Available [facility]) [address] [place], [address], 02/22/2025 08:11:46 02/22/20 25 02/22/2025 LIPID PANEL VLDL cholesterol darling 14 mg/dL 5-40 Not Available [facility] ([facility]) [address] [facility], [place], [address], 02/22/2025 08:11:46 02/22/20 25 02/22/2025 LIPID PANEL LDL chol calc ([facility]) 43 mg/dL 0-99 Not Available [facility]) [address] [facility], [place], [address], 02/22/2025 08:11:46 02/22/20 25 02/22/2025 LIPID PANEL LDL calc comment: MANAGED CARE COORDINATOR Not Available [facility] ([facility]) [address] [facility], [place], [address], 02/22/2025 08:11:46 02/22/20 25 02/22/2025 VITAM IN B12 AND FOLAT E vitamin B12 375 pg/mL 232-12 45 normal Not Available [facility] ([facility]) [address] [facility], [place], [address], 02/22/2025 08:11:47 02/22/20 25 02/22/2025 VITAM IN B12 AND FOLAT E folate (folic acid), serum 5.2 NG/mL >3.0 normal A serum folat e jazz ntrat ion of less than 3.1 ng/mL is consi dered to repre sent clini darling defic iency . Not Available [facility] ([facility]) [address] [facility], [place], [address], 02/22/2025 08:11:47 02/22/2002/22/2025 HEMOG LOBIN A1C hemoglobin A1C 5.4 % 4.8-5. 6 normal Predi abete s: 5.7 - 6.4 Diabe herman: >6.4 Glyce tony contr ol for adult s with diabe herman: <7.0 Not Available [facility] ([facility]) [address] [facility], [place], [address], 02/22/2025 08:11:47 02/22/20 25 02/22/2025 PROST ATE-S PECIF IC AG prostate specific Ag 1.3 NG/mL 0.0-4. 0 normal Sandy ECLIA metho dolog y. Accor ding to the Ameri can Urolo gical Assoc iatio n, Serum PSA shoul d decre ase and remai n at undet ectab le level s after radic al prost atect elias. The AUA defin es bioch emica l recur rence as an initi al PSA value 0.2 ng/mL or great er follo wed by a subse quent confi rmato ry PSA value 0.2 ng/mL or great er. Value s obtai barbara with diffe rent assay metho ds or kits canno t be used inter young eably . Resul ts canno t be inter prete d as absol mary's igloo evide nce of the prese nce or absen ce of john paul springer se. Not Available [facility] ([facility]) [address] [facility], [place], [address], 02/22/2025 08:11:48 02/22/20 25 02/22/2025 VITAM IN D, 25-HY DROXY vitamin D, 25-hydroxy 43.0 NG/mL 30.0-1 00.0 Vitam in D defic iency has been defin ed by the Insti tute of Medic ine and an Endoc rine Socie ty pract ice guide line as a level of serum 25-OH vitam in D less than 20 ng/mL (1,2) . The Endoc rine Socie ty went on to furth er defin e vitam in D insuf ficie ncy as a level betwe en 21 and 29 ng/mL (2). 1. IOM (Inst itute of Medic ine). 2009. Dieta ry refer ence intak es for calci um and D. Jennifer orellana [place]: The Natio nal [facility] Press . 2. Carley ANTUNEZ, Emily rosenthal [place], Tod off-F errderrek i MIXON, et al. Evalu ation , treat ment, and preve ntion of vitam in D defic iency : an Endoc rine Socie ty clini darling pract ice guide line. JCEM. 2010; 96(7) :1911 -30. Not Available [facility] ([facility]) [address] [facility], [place], [address], 02/22/2025 08:11:48 Result Notes None recorded. Problems Name Problem SNOMED Code Status Onset Date Resolution Date Notes Provider Name and Address Organization Details Recorded Time Hypertensive disorder 31797472 Active 2022 YUDITH rodriguez, [employer] 3 09:37:25 Hyperlipidemia 68881019 Active 2022 YUDITH rodriguez, [employer] 3 09:37:33 Bradycardia 19040462 Active [address], [address], [employer] 3 10:09:39 Renal insufficiency 336199640 Active [address], [address], [employer] 3 10:11:09 Body mass index 25-29 - overweight 602831330 Active 2024 Yesenia rodriguez, [employer] 5 17:37:14 Problem Notes None recorded. Medical Equipment None Reported. Allergies No known drug allergies Medications Name Sig Start Date Stop Date Status Note LastModified by Organization Details LastModified Time amoxicillin 500 mg capsule TAKE 1 CAPSULE BY MOUTH every 8 hours DAILY 02/18 completed Not Available Not Available Not Available levothyroxi ne 137 mcg tablet TAKE 1 TABLET BY MOUTH EVERY DAY active Not Available Not Available No t Available lisinopril 20 mg tablet TAKE 1 TABLET BY MOUTH EVERY DAY IN THE EVENING active Not Available Not Available No t Available amlodipine 5 mg tablet TAKE 1 TABLET BY MOUTH EVERY DAY IN THE MORNING active Not Available Not Available No t Available aspirin 81 mg tablet,abbie yed release TAKE 1 TABLET BY MOUTH EVERY DAY active Not Available Not Available No t Available triamcinolo ne acetonide 0.1 % topical cream APPLY A THIN LAYER TO THE AFFECTED AREA(S) BY TOPICAL ROUTE 2 TIMES PER DAY active Not Available Not Available No t Available bisoprolol fumarate 10 mg tablet Take 0.5 tablets every day by oral route in the evening. 05/18 completed Not Available Not Available Not Available bisoprolol fumarate 5 mg tablet TAKE 1 TABLET BY MOUTH EVERY DAY active Not Available Not Available No t Available levothyroxi ne 125 mcg tablet Take 1 tablet every day by oral route in the morning. 05/05 completed Not Available Not Available Not Available triamterene 37.5 mg-hydrochl orothiazide 25 mg tablet TAKE 1/2 TABLET BY MOUTH EVERY DAY IN THE MORNING active Not Available Not Available No t Available Vitamin D2 1,250 mcg (50,000 unit) capsule TAKE 1 CAPSULE BY MOUTH EVERY WEEK active Not Available Not Available No t Available lisinopril 40 mg tablet TAKE 1 TABLET BY MOUTH EVERY DAY FOR 90 DAYS 04/29 completed Not Available Not Available Not Available rosuvastati n 20 mg tablet TAKE ONE TABLET BY MOUTH DAILY AT BEDTIME 02/18 completed Not Available Not Available Not Available rosuvastati n 40 mg tablet TAKE 1 TABLET BY MOUTH EVERY DAY active Not Available Not Available No t Available Repatha SureClick 140 mg/mL subcutaneou s pen injector inject 140 MG UNDER THE SKIN every 2 WEEKS active Not Available Not Available No t Available Vitals Date Recorded Body height Body mass index (BMI) Body weight Oxygen saturation Heart rate Systolic And Diastolic Provider Name and Address Organization Details Last Updated DateTime 5 180.34 cm 24.7 kg/m2 77921.9 5 g 97 % 67 /min 138/64 mm[Hg] Yesenia Baeza [employer]. 5 08:58:22 Social History Question Answer Notes LastModified by Organizat ion Details LastModified Time Tobacco Smoking Status Current Some Day Smoker YUDITH rodriguez [employer] 04/29/2022 09:32:14 Do You Have An Advance Directive? No [email or web address] Information not available 04/29/2022 Is Your Home Air Conditioned? Yes [email or web address] Information not available 04/29/2022 Are You Blind Or Do You Have Difficulty Seeing? No [email or web address] Information not available 04/29/2022 What Is Your Level Of Caffeine Consumption? Moderate [email or web address] Information not available 04/29/2022 Are You A Caregiver? No [email or web address] Information not available 04/29/2022 In The 14 Days Before Symptom Onset, Have You Had Close Contact With A Laboratory-confi rmed COVID-19 While That Case Was Ill? No [email or web address] Information not available 04/29/2022 In The 14 Days Before Symptom Onset, Have You Had Close Contact With A Person Who Is Under Investigation For COVID-19 While That Person Was Ill? No [email or web address] Information not available 04/29/2022 Have You Been To An Area Known To Be High Risk For COVID-19? No [email or web address] Information not available 04/29/2022 Are You Deaf Or Do You Have Serious Difficulty Hearing? Yes [email or web address] Information not available 04/29/2022 What Type Of Diet Are You Following? REGULAR [email or web address] Information not available 04/29/2022 What Is The Highest Grade Or Level Of School You Have Completed Or The Highest Degree You Have Received? LL88703-4 Information not available 02/21/2025 Who Is Your Employer? [employer] [email or web address] Information not available 04/29/2022 Have There Been Any Changes To Your Family Or Social Situation? No [email or web address] Information not available 04/29/2022 Are There Any Guns Present In Your Home? Yes [email or web address] Information not available 04/29/2022 Which Of Your Hands Is Dominant? Left [email or web address] Information not available 04/29/2022 Do You Engage In Moderate/heavy Exercise (e.g. Brisk Walk, Jogging, Strength Training, Etc)? No Information not available 02/21/2025 How Many Times In The Past Year Have You Used An Illegal Drug Or Used A Prescription Medication For Nonmedical Reasons? 0 Information not available 02/21/2025 Where Do You Live? [place] Information not available 02/21/2025 Do You Have A Medical Power Of Analytical Clerk? Yes [email or web address] Information not available 04/29/2022 What Was The Date Of Your Most Recent Tobacco Screening? 02/21/2025 Information not available 02/21/2025 Are There Any Occupational Health Risks Where You Work? No [email or web address] Information not available 04/29/2022 What Is Your Current Pack Years? [email or web address] Information not available 02/21/2025 Do You Have Any Pets? No [email or web address] Information not available 04/29/2022 Do You Use Protection During Sex? No [email or web address] Information not available 04/29/2022 What Is Your Relationship Status? [email or web address] Information not available 04/29/2022 Have You Repeated Any Grades? No [email or web address] Information not available 04/29/2022 Do You Wear A Seatbelt When Driving Or As A Passenger? Yes Information not available 02/21/2025 Do You Use Your Seat Belt Or Car Seat Routinely? Yes [email or web address] Information not available 02/09/2023 Are You Sexually Active? Yes Information not available 04/29/2022 Do You Have Any Siblings? Yes [email or web address] Information not available 04/29/2022 Do You Have Smoke And Carbon Monoxide Detectors In Your Home? Yes [email or web address] Information not available 04/29/2022 At What Age Did You Start Smoking Tobacco? 18 Information not available 02/21/2025 Are You Passively Exposed To Smoke? No Information not available 02/21/2025 Are There Any Smokers In Your House? Yes [email or web address] Information not available 04/29/2022 How Much Tobacco Do You Smoke? 1 PPW Information not available 02/21/2025 What Types Of Sporting Activities Do You Participate In? None Information not available 02/21/2025 Do You Use Sunscreen Routinely? No [email or web address] Information not available 04/29/2022 Has Tobacco Cessation Counseling Been Provided? Yes Information not available 10/25/2022 On What Date Was Tobacco Cessation Counseling Provided? 02/21/2025 Information not available 02/21/2025 How Many Years Have You Smoked Tobacco? 30 Information not available 02/21/2025 Have You Recently Traveled Abroad? No [email or web address] Information not available 04/29/2022 Do You Have Difficulty Walking Or Climbing Stairs? No [email or web address] Information not available 04/29/2022 Are You Currently In School? No [email or web address] Information not available 04/29/2022 What Contraceptive Method Was Reported At Start Of This Visit? None Information not available 02/21/2025 Do You Feel Safe In Your Home? Yes Information not available 02/21/2025 Do You Have Any Dietary Restrictions? No Information not available 02/21/2025 What Is Your Reason For Having No Contraceptive Method At Start Of This Visit? Other Information not available 02/21/2025 Sex: Unknown Functional Status Question Answer Note LastModified by Organizat ion Details LastModified Time Do you use any illicit or recreational drugs? No [email or web address] Information not available 04/29/2022 Do you feel safe in your relationship? Yes Information n ot available 02/21/2025 Do you or have you ever used any other forms of tobacco or nicotine? No Information not available 02/21/2025 What is your level of alcohol consumption? None [email or web address] Information not available 04/29/2022 Are you currently employed? Yes [email or web address] Information not available 04/29/2022 Do you have transportation difficulties? No [email or web address] Information not available 04/29/2022 Are you able to walk independently without assistance or assistive devices? YESWOREST [email or web address] Information not available 04/29/2022 Do you have difficulty doing errands alone? No [email or web address] Information not available 04/29/2022 Are you able to care for yourself independently? Yes [email or web address] Information not available 04/29/2022 Do you have difficulty dressing, bathing, grooming, or toileting? No [email or web address] Information not available 04/29/2022 Mental Status Question Answer Note LastModified by Organizat ion Details LastModified Time Do you feel stressed (tense, restless, nervous, or anxious, or unable to sleep at night)? [id number] Information not available 02/21/2025 Do you have difficulty concentrating, remembering or making decisions? No [email or web address] Information no t available 04/29/2022 Family History Relationship Description Onset Age of this Age Resolved Age Notes LastModified by Organization Details LastModified Time Mother Goiter due to thyroiditis [email or web address] Not available 09:38:28 Medical History Condition Response Hypertension Y Immunizations Vaccine Type Date Status Note Provider Nam e and Address Organization Details Recorded Time Influenza, split virus, trivalent, PF 02/21/2025 completed Yesenia [email or web address] [place] [facility] [place] [facility] [employer] [facility]/21/2025 10:37:45 Past Encounters Encounter ID Performer Location Encounter Start Date Encounter Closed Date Diagnosis/Indication Diagnosis SNOMED-CT Code Diagnosis ICD10 Code Diagnosis IMO Codes Diagnosis Note [id number] Ann Roger APRN [address] [address] 02/21/2025 08:51:20 02/21/2025 09:57:21 Requires influenza virus vaccination 729338531 Z23 0349176 Fatigue 65065132 R53.83 7770428 Mixed hyperlipidemia 267 791005 E78.2 65450 Hyperglycemia 13002093 R 73.9 66904 Vitamin D deficiency 347 77727 E55.9 06817 Cobalamin deficiency 190 799994 E53.8 06301 Nocturia 320174731 R35.1 36936 Essential hypertension 38478052 I10 Hypothyroidism 76599225 E03.9 Body mass index 20-24 - normal 238357491 Z68.24 50676123 Health Concerns Section Related Observation LastModified by Organization Detai ls LastModified Time None Recorded Concern Status LastModified by Organization Details LastModified Time None Recorded Payers Encounter Date Sequence Insurance Name Policy Number Policy Frederick Covered Member ID Frederick Member ID Guarantor Name 02/21/2025 1 [facility] [id number] Asa Galeana [id number] Asa Galeana Notes Date Note Type Note Provider Name and Address Organization Details Recorded Time 02/21/2025 text/html pt here today for medication refills. pt states hes doing well on current medication regime. pt states that he has had a runny nose for the past few days but has been taking OTC allergy med and that has been helping. he will come back if he has worsening symptoms. Ann Roger APRN [address] [place] [address], [phone], [facility] [employer] 02/21/2025 11:51:51
--- OUTSIDE RECORDS SUMMARY | 2025-03-27 07:40 | XMS_ITS | Data Portability ---
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 Patient tolerating medication well at current dose without adverse effects. Refilled as below. Discussed plan with patient, who expressed understanding . Follow up as noted below. [email or web address] Not available 11/22/2024 11:15:09 Plan of Treatment Reminders Order Date Submit Date Provider Last Modified By Organization Details Last Modified Time Details Appointments None recorded. Lab lipid panel, serum 2024 025 [facility] [address] [place] [address], [address], 5 08:11:46 CBC w/ auto diff 2024 025 [place] [address] [place] [address], [address], 5 08:11:45 CMP, serum or plasma 2024 025 [facility] [address] [place], [address], 5 08:11:46 TSH + free T4, serum 2024 025 [facility] [place], [address], 5 08:11:45 HbA1c (hemoglobin A1c), blood 2024 025 [facility] ([place]), [address] [place], [address], 5 08:11:47 vitamin D, 25-hydroxy, total, serum 2024 025 [facility] ([place]), [address] [place], [address], 5 08:11:48 PSA, total, serum or plasma 2024 025 [facility] ([place]), [address] [place], [address], 5 08:11:48 cobalamin and folate panel, serum 2024 025 [facility] ([place]), [address] [place], [address], 5 08:11:47 Hepatitis C IgG Ab, qual, serum 2024 025 [facility] 1 [facility] ([place]), [address] [place], [address], 5 12:54:53 HIV 1 + 2, meaningful use set 2024 025 [facility] 1 [facility] ([place]), [address] [place], [address], 5 12:54:42 lipid panel, serum 2024 025 [facility]), [address] [place], [address], 5 09:08:08 CBC w/ auto diff 2024 025 [facility]), [address] [place], [address], 5 09:08:07 CMP, serum or plasma 2024 025 [facility]), [address] [place], [address], 5 09:08:07 TSH + free T4, serum 2024 025 [facility]), [address] [place], [address], 5 09:08:06 HbA1c (hemoglobin A1c), blood 2024 025 [facility]), [facility] [place], [address], 5 09:08:09 cobalamin and folate panel, serum 2024 025 [facility]), [address] [place], [address], 5 09:08:08 vitamin D, 25-hydroxy, total, serum 2024 025 [facility]), [address] [place], [address], 5 09:08:09 PSA, total, serum or plasma 2024 025 [facility]), [address] [place] [address], [address], 5 09:08:09 Referral None recorded. Procedures None recorded. Surgeries None recorded. Imaging None recorded. Medication Orders ergocalcife rol (vitamin D2) 1,250 mcg (50,000 unit) capsule 2024 025 [facility], [address] [place] [address], [address], 5 13:03:04 amlodipine 5 mg tablet 2024 025 [facility], [address] [place] [address], [address], 13:03:00 aspirin 81 mg tablet,abbie yed release 2024 025 [facility], [address] [place] [address], [address], 13:03:03 bisoprolol fumarate 5 mg tablet 2024 025 [facility], [address] [place] [address], [address], 13:03:01 lisinopril 20 mg tablet 2024 025 [facility], [address] [place] [address], [address], 13:03:00 triamterene 37.5 mg-hydrochl orothiazide 25 mg tablet 2024 025 [facility], [address] [place] [address], [address], 13:03:03 levothyroxi ne 137 mcg tablet 2024 025 [facility], [address] [place] [address], [address], 13:03:02 ergocalcife rol (vitamin D2) 1,250 mcg (50,000 unit) capsule 2024 025 [facility], [address] [place] [address], [address], 15:21:09 amlodipine 5 mg tablet 2024 025 [facility], [address] [place] [address], [address], 5 15:21:07 aspirin 81 mg tablet,abbie yed release 2024 025 [facility], [address] [place] [address], [address], 5 15:21:08 bisoprolol fumarate 5 mg tablet 2024 025 [facility], [address] [place] [address], [address], 5 15:21:10 lisinopril 20 mg tablet 2024 025 [facility], [address] [place] [address], [address], 5 15:21:06 triamterene 37.5 mg-hydrochl orothiazide 25 mg tablet 2024 025 [facility], [address] [place] [address], [address], 5 15:21:08 levothyroxi ne 137 mcg tablet 2024 025 [facility], [address] [place] [address], [address], 5 15:21:10 ergocalcife rol (vitamin D2) 1,250 mcg (50,000 unit) capsule 2024 025 [facility], [address] [place] [address], [address], 5 10:17:51 amlodipine 5 mg tablet 2024 025 [facility], [address] [place] [address], [address], 5 12:00:30 aspirin 81 mg tablet,abbie yed release 2024 025 [facility], [address] [place] [address], [address], 5 10:17:50 bisoprolol fumarate 5 mg tablet 2024 025 [facility], [address] [place] [address], [address], 5 10:17:52 lisinopril 20 mg tablet 2024 025 [facility], [address] [place] [address], [address], 5 10:17:52 triamterene 37.5 mg-hydrochl orothiazide 25 mg tablet 2024 025 [facility], [address] [place] [address], [address], 5 12:00:28 levothyroxi ne 137 mcg tablet 2024 025 [facility], [address] [place] [address], [address], 5 12:00:29 triamcinolo ne acetonide 0.1 % topical cream 2024 025 [facility], [address] [place] [address], [address], 5 08:38:11 amlodipine 5 mg tablet 2024 025 [facility], [address] [place] [address], [address], 5 10:07:49 aspirin 81 mg tablet,abbie yed release 2024 025 [facility], [address] [place] [address], [address], 5 10:07:52 bisoprolol fumarate 5 mg tablet 2024 025 [facility], [address] [place] [address], [address], 5 10:07:50 lisinopril 20 mg tablet 2024 025 [facility], [address] [place] [address], [address], 5 10:07:51 triamterene 37.5 mg-hydrochl orothiazide 25 mg tablet 2024 025 [facility], [address] [place] [address], [address], 5 10:07:53 levothyroxi ne 137 mcg tablet 2024 025 [facility], [address] [place] [address], [address], 5 10:07:51 amlodipine 5 mg tablet 2023 024 [facility], [address] [place] [address], [address], 4 11:09:23 aspirin 81 mg tablet,abbie yed release 2023 024 [facility], [address] [place] [address], [address], 4 17:32:06 bisoprolol fumarate 5 mg tablet 2023 024 [facility], [address] [place] [address], [address], 4 17:32:09 lisinopril 20 mg tablet 2023 024 [facility], [address] [place] [address], [address], 17:32:05 triamterene 37.5 mg-hydrochl orothiazide 25 mg tablet 2023 [facility], [address] [place] [address], [address], 17:32:08 levothyroxi ne 137 mcg tablet 2023 [facility], [address] [place] [address], [address], 17:32:07 Patient TargetsNo targets recorded. Patient Instructions Encounter Date Encounter Id Patient Instructions Last Modified By Organization Details Last Modified Time 11/22/2024 [id number] learning about healthy weight [email or web address] Not available 11/22/2024 15:39:05 Reason for Referral None Reported. Results Created Date Observation Date Name Description Value Unit Range Abnormal Flag Note LastModifiedBy Organization Detail LastModifiedTime 05/21/1905/22/2024 TSH+F REE T4 TSH 2.690 uIU/m L 0.450- 4.500 normal Not Available [facility] ([facility]) [address] [place], [address], 05/22/2024 09:08:06 05/21/1905/22/2024 TSH+F REE T4 T4,free(dire ct) 1.57 NG/dL 0.82-1 .77 normal Not Available [facility] ([facility]) [address] [place], [address], 05/22/2024 09:08:06 05/21/1905/22/2024 CBC WITH DIFFE RENTI AL/PL ATELE T WBC 5.1 x10e3 /uL 3.4-10 .8 normal Not Available [facility] ([facility]) [address] [place], [address], 05/22/2024 09:08:07 05/21/19 25 05/22/2024 CBC WITH DIFFE RENTI AL/PL ATELE T RBC 4.98 x10e6 /uL 4.14-5 .80 normal Not Available [facility] ([facility]) [address] [place], [address], 05/22/2024 09:08:07 05/21/1905/22/2024 CBC WITH DIFFE RENTI AL/PL ATELE T hemoglobin 14.5 g/dL 13.0-1 7.7 normal Not Available [facility] ([facility]) [address] [place], [address], 05/22/2024 09:08:07 05/21/1905/22/2024 CBC WITH DIFFE RENTI AL/PL ATELE T hematocrit 44.1 % 37.5-5 1.0 normal Not Available [facility] ([facility]) [address] [place], [address], 05/22/2024 09:08:07 05/21/1905/22/2024 CBC WITH DIFFE RENTI AL/PL ATELE T MCV 89 fL 79-97 normal Not Available [facility] ([facility]) [address] [place], [address], 05/22/2024 09:08:07 05/21/1905/22/2024 CBC WITH DIFFE RENTI AL/PL ATELE T MCH 29.1 pg 26.6-3 3.0 normal Not Available [facility] ([facility]) [address] [place], [address], 05/22/2024 09:08:07 05/21/1905/22/2024 CBC WITH DIFFE RENTI AL/PL ATELE T MCHC 32.9 g/dL 31.5-3 5.7 normal Not Available [facility] ([facility]) [address] [place], [address], 05/22/2024 09:08:07 05/21/19 25 05/22/2024 CBC WITH DIFFE RENTI AL/PL ATELE T RDW 13.0 % 11.6-1 5.4 Not Available [facility] ([facility]) [address] [facility], [place], [address], 05/22/2024 09:08:07 05/21/19 25 05/22/2024 CBC WITH DIFFE RENTI AL/PL ATELE T platelets 339 x10e3 /uL 150-45 0 normal Not Available [facility] ([facility]) [address] [facility], [place], [address], 05/22/2024 09:08:07 05/21/19 25 05/22/2024 CBC WITH DIFFE RENTI AL/PL ATELE T neutrophils 43 % not estab. normal Not Available [facility] ([facility]) [address] [facility], [place], [address], 05/22/2024 09:08:07 05/21/19 25 05/22/2024 CBC WITH DIFFE RENTI AL/PL ATELE T lymphs 33 % not estab. normal Not Available [facility] ([facility]) [address] [facility], [place], [address], 05/22/2024 09:08:07 05/21/19 25 05/22/2024 CBC WITH DIFFE RENTI AL/PL ATELE T monocytes 11 % not estab. normal Not Available [facility] ([facility]) [address] [facility], [place], [address], 05/22/2024 09:08:07 05/21/19 25 05/22/2024 CBC WITH DIFFE RENTI AL/PL ATELE T eos 11 % not estab. normal Not Available [facility] ([facility]) [address] [facility], [place], [address], 05/22/2024 09:08:07 05/21/19 25 05/22/2024 CBC WITH DIFFE RENTI AL/PL ATELE T basos 1 % not estab. normal Not Available [facility] ([facility]) [address] [place], [address], 05/22/2024 09:08:07 05/21/19 25 05/22/2024 CBC WITH DIFFE RENTI AL/PL ATELE T immature cells STITCH BONDING MACHINE DRAWER IN Not Available [facility] ([facility]) [address] [facility], [place], [address], 05/22/2024 09:08:07 05/21/19 25 05/22/2024 CBC WITH DIFFE RENTI AL/PL ATELE T neutrophils (absolute) 2.2 x10e3 /uL 1.4-7. 0 normal Not Available [facility] ([facility]) [address] [facility], [place], [address], 05/22/2024 09:08:07 05/21/19 25 05/22/2024 CBC WITH DIFFE RENTI AL/PL ATELE T lymphs (absolute) 1.7 x10e3 /uL 0.7-3. 1 normal Not Available [facility] ([facility]) [address] [place], [address], 05/22/2024 09:08:07 05/21/1905/22/2024 CBC WITH DIFFE RENTI AL/PL ATELE T monocytes(ab solute) 0.6 x10e3 /uL 0.1-0. 9 normal Not Available [facility] ([facility]) [address] [place], [address], 05/22/2024 09:08:07 05/21/19 25 05/22/2024 CBC WITH DIFFE RENTI AL/PL ATELE T eos (absolute) 0.6 x10e3 /uL 0.0-0. 4 above high normal Not Available [facility] ([facility]) [address] [place], [address], 05/22/2024 09:08:07 05/21/19 25 05/22/2024 CBC WITH DIFFE RENTI AL/PL ATELE T baso (absolute) 0.1 x10e3 /uL 0.0-0. 2 normal Not Available [facility] ([facility]) [address] [facility], [place], [address], 05/22/2024 09:08:07 05/21/19 25 05/22/2024 CBC WITH DIFFE RENTI AL/PL ATELE T immature granulocytes 1 % not estab. Not Available [facility] ([facility]) [address] [facility], [place], [address], 05/22/2024 09:08:07 05/21/19 25 05/22/2024 CBC WITH DIFFE RENTI AL/PL ATELE T immature grans (abs) 0.0 x10e3 /uL 0.0-0. 1 Not Available [facility] ([facility]) [address] [facility], [place], [address], 05/22/2024 09:08:07 05/21/19 25 05/22/2024 CBC WITH DIFFE RENTI AL/PL ATELE T NRBC STITCH BONDING MACHINE DRAWER IN Not Available [facility] ([facility]) [address] [facility], [place], [address], 05/22/2024 09:08:07 05/21/19 25 05/22/2024 CBC WITH DIFFE RENTI AL/PL ATELE T hematology comments: STITCH BONDING MACHINE DRAWER IN Not Available [facility] ([facility]) [address] [facility], [place], [address], 05/22/2024 09:08:07 05/21/19 25 05/22/2024 COMP. METAB OLIC PANEL (14) glucose 93 mg/dL 70-99 normal Not Available [facility] ([facility]) [address] [facility], [place], [address], 05/22/2024 09:08:07 05/21/19 25 05/22/2024 COMP. METAB OLIC PANEL (14) BUN 16 mg/dL 8-27 normal Not Available [facility] ([facility]) [address] [place], [address], 05/22/2024 09:08:07 05/21/19 25 05/22/2024 COMP. METAB OLIC PANEL (14) creatinine 1.21 mg/dL 0.76-1 .27 normal Not Available [facility] ([facility]) [address] [facility] [place], [address], 05/22/2024 09:08:07 05/21/19 25 05/22/2024 COMP. METAB OLIC PANEL (14) eGFR 66 mL/mi n/1.7 3 >59 normal Not Available [facility] ([facility]) [address] [place], [address], 05/22/2024 09:08:07 05/21/19 25 05/22/2024 COMP. METAB OLIC PANEL (14) BUN/creatini ne ratio 13 10-24 normal Not Available [facility] ([facility]) [address] [place], [address], 05/22/2024 09:08:07 05/21/19 25 05/22/2024 COMP. METAB OLIC PANEL (14) sodium 139 mmol/ L 134-14 4 normal Not Available [facility] ([facility]) [address] [place], [address], 05/22/2024 09:08:07 05/21/19 25 05/22/2024 COMP. METAB OLIC PANEL (14) potassium 4.5 mmol/ L 3.5-5. 2 normal Not Available [facility] ([facility]) [address] [place], [address], 05/22/2024 09:08:07 05/21/19 25 05/22/2024 COMP. METAB OLIC PANEL (14) chloride 104 mmol/ L 96-106 normal Not Available [facility] ([facility]) [address] [place], [address], 05/22/2024 09:08:07 05/21/19 25 05/22/2024 COMP. METAB OLIC PANEL (14) carbon dioxide, total 22 mmol/ L 20-29 normal Not Available [facility] ([facility]) [address] [place], [address], 05/22/2024 09:08:07 05/21/19 25 05/22/2024 COMP. METAB OLIC PANEL (14) calcium 9.9 mg/dL 8.6-10 .2 normal Not Available [facility] ([facility]) [address] [place], [address], 05/22/2024 09:08:07 05/21/19 25 05/22/2024 COMP. METAB OLIC PANEL (14) protein, total 7.3 g/dL 6.0-8. 5 normal Not Available [facility] ([facility]) [address] [place], [address], 05/22/2024 09:08:07 05/21/19 25 05/22/2024 COMP. METAB OLIC PANEL (14) albumin 4.2 g/dL 3.9-4. 9 normal Not Available [facility] ([facility]) [address] [place], [address], 05/22/2024 09:08:07 05/21/19 25 05/22/2024 COMP. METAB OLIC PANEL (14) globulin, total 3.1 g/dL 1.5-4. 5 Not Available [facility] ([facility]) [address] [place], [address], 05/22/2024 09:08:07 05/21/19 25 05/22/2024 COMP. METAB OLIC PANEL (14) bilirubin, total 0.4 mg/dL 0.0-1. 2 normal Not Available [facility] ([facility]) [address] [place], [address], 05/22/2024 09:08:07 05/21/19 25 05/22/2024 COMP. METAB OLIC PANEL (14) alkaline phosphatase 84 IU/L 44-121 normal Not Available [facility] ([facility]) [address] [place], [address], 05/22/2024 09:08:07 05/21/19 25 05/22/2024 COMP. METAB OLIC PANEL (14) AST (SGOT) 22 IU/L 0-40 normal Not Available [facility] ([facility]) [address] [place], [address], 05/22/2024 09:08:07 05/21/19 25 05/22/2024 COMP. METAB OLIC PANEL (14) ALT (SGPT) 15 IU/L 0-44 normal Not Available [facility] ([facility]) [address] [place], [address], 05/22/2024 09:08:07 05/21/19 25 05/22/2024 LIPID PANEL cholesterol, total 132 mg/dL 100-19 9 normal Not Available [facility] ([facility]) [address] [place], [address], 05/22/2024 09:08:08 05/21/19 25 05/22/2024 LIPID PANEL triglyceride s 67 mg/dL 0-149 normal Not Available [facility] ([facility]) [address] [place], [address], 05/22/2024 09:08:08 05/21/19 25 05/22/2024 LIPID PANEL HDL cholesterol 49 mg/dL >39 normal Not Available [facility]) [address] [place], [address], 05/22/2024 09:08:08 05/21/19 25 05/22/2024 LIPID PANEL VLDL cholesterol darling 14 mg/dL 5-40 Not Available [facility] ([facility]) [address] [place], [address], 05/22/2024 09:08:08 05/21/19 25 05/22/2024 LIPID PANEL LDL chol calc ([facility]) 69 mg/dL 0-99 Not Available [facility]) [address] [place], [address], 05/22/2024 09:08:08 05/21/19 25 05/22/2024 LIPID PANEL LDL calc comment: STITCH BONDING MACHINE DRAWER IN Not Available [facility] ([facility]) [address] [place], [address], 05/22/2024 09:08:08 05/21/1905/22/2024 VITAM IN B12 AND FOLAT E vitamin B12 351 pg/mL 232-12 45 normal Not Available [facility] ([facility]) [address] [place], [address], 05/22/2024 09:08:08 05/21/1905/22/2024 VITAM IN B12 AND FOLAT E folate (folic acid), serum 4.4 NG/mL >3.0 normal A serum folat e jazz ntrat ion of less than 3.1 ng/mL is consi dered to repre sent clini darling defic iency . Not Available [facility] ([facility]) [address] [place], [address], 05/22/2024 09:08:08 05/21/1905/22/2024 HEMOG LOBIN A1C hemoglobin A1C 5.6 % 4.8-5. 6 normal Predi abete s: 5.7 - 6.4 Diabe herman: >6.4 Glyce tony contr ol for adult s with diabe herman: <7.0 Not Available [facility] ([facility]) [address] [place], [address], 05/22/2024 09:08:08 05/21/19 25 05/22/2024 PROST ATE-S PECIF IC AG prostate specific [...] t be inter prete d as absol herminio evide nce of the prese nce or absen ce of [facility] chyna shepard se. Not Available [facility] ([facility]) [address] [facility], [place], [address], 05/22/2024 09:08:09 05/21/1905/22/2024 VITAM IN D, 25-HY DROXY vitamin D, 25-hydroxy 21.1 NG/mL 30.0-1 00.0 below low normal Vitam in D defic iency has been [...] Jennifer orellana [place]: [facility] Press . 2. Carley duvall MF, Emily ey [place], Bisch off-F errar i MIXON, et al. Evalu ation , treat ment, and preve ntion of vitam in D defic iency : an Endoc rine Socie ty clini darling pract ice guide line. JCEM. 2010; 96) :1911 -30. Not Available [facility] ([facility]) [address] [place], [address], 05/22/2024 09:08:09 02/22/2002/22/2025 TSH+F REE T4 TSH 0.543 uIU/m L 0.450- 4.500 normal Not Available [facility] ([facility]) [address] [place], [address], 02/22/2025 08:11:44 02/22/2002/22/2025 TSH+F REE T4 T4,free(dire ct) 1.60 NG/dL 0.82-1 .77 normal Not Available [facility] ([facility]) [address] [place], [address], 02/22/2025 08:11:44 02/22/2002/22/2025 CBC WITH DIFFE RENTI AL/PL ATELE T WBC 4.9 x10e3 /uL 3.4-10 .8 normal Not Available [facility] ([facility]) [address] [place], [address], 02/22/2025 08:11:45 02/22/2002/22/2025 CBC WITH DIFFE RENTI AL/PL ATELE T RBC 4.81 x10e6 /uL 4.14-5 .80 normal Not Available [facility] ([facility]) [address] [place], [address], 02/22/2025 08:11:45 02/22/2002/22/2025 CBC WITH DIFFE RENTI AL/PL ATELE T hemoglobin 14.0 g/dL 13.0-1 7.7 normal Not Available [facility] ([facility]) [address] [place], [address], 02/22/2025 08:11:45 02/22/20 25 02/22/2025 CBC WITH DIFFE RENTI AL/PL ATELE T hematocrit 44.4 % 37.5-5 1.0 normal Not Available [facility] ([facility]) [address] [facility], [place], [address], 02/22/2025 08:11:45 02/22/20 25 02/22/2025 CBC WITH DIFFE RENTI AL/PL ATELE T MCV 92 fL 79-97 normal Not Available [facility] ([facility]) [address] [facility], [place], [address], 02/22/2025 08:11:45 02/22/20 25 02/22/2025 CBC WITH DIFFE RENTI AL/PL ATELE T MCH 29.1 pg 26.6-3 3.0 normal Not Available [facility] ([facility]) [address] [facility], [place], [address], 02/22/2025 08:11:45 02/22/20 25 02/22/2025 CBC WITH DIFFE RENTI AL/PL ATELE T MCHC 31.5 g/dL 31.5-3 5.7 normal Not Available [facility] ([facility]) [address] [facility], [place], [address], 02/22/2025 08:11:45 02/22/20 25 02/22/2025 CBC WITH DIFFE RENTI AL/PL ATELE T RDW 13.1 % 11.6-1 5.4 Not Available [facility] ([facility]) [address] [place], [address], 02/22/2025 08:11:45 02/22/20 25 02/22/2025 CBC WITH DIFFE RENTI AL/PL ATELE T platelets 318 x10e3 /uL 150-45 0 normal Not Available [facility] ([facility]) [address] [place], [address], 02/22/2025 08:11:45 02/22/20 25 02/22/2025 CBC WITH DIFFE RENTI AL/PL ATELE T neutrophils 47 % not estab. normal Not Available [facility] ([facility]) [address] [facility], [place], [address], 02/22/2025 08:11:45 02/22/20 25 02/22/2025 CBC WITH DIFFE RENTI AL/PL ATELE T lymphs 32 % not estab. normal Not Available [facility] ([facility]) [address] [facility], [place], [address], 02/22/2025 08:11:45 02/22/20 25 02/22/2025 CBC WITH DIFFE RENTI AL/PL ATELE T monocytes 10 % not estab. normal Not Available [facility] ([facility]) [address] [facility], [place], [address], 02/22/2025 08:11:45 02/22/20 25 02/22/2025 CBC WITH DIFFE RENTI AL/PL ATELE T eos 10 % not estab. normal Not Available [facility] ([facility]) [address] [facility], [place], [address], 02/22/2025 08:11:45 02/22/20 25 02/22/2025 CBC WITH DIFFE RENTI AL/PL ATELE T basos 1 % not estab. normal Not Available [facility] ([facility]) [address] [facility], [place], [address], 02/22/2025 08:11:45 02/22/20 25 02/22/2025 CBC WITH DIFFE RENTI AL/PL ATELE T immature cells STITCH BONDING MACHINE DRAWER IN Not Available [facility] ([facility]) [address] [facility], [place], [address], 02/22/2025 08:11:45 02/22/20 25 02/22/2025 CBC WITH DIFFE RENTI AL/PL ATELE T neutrophils (absolute) 2.3 x10e3 /uL 1.4-7. 0 normal Not Available [facility] ([facility]) [address] [facility], [place], [address], 02/22/2025 08:11:45 02/22/20 25 02/22/2025 CBC WITH DIFFE RENTI AL/PL ATELE T lymphs (absolute) 1.6 x10e3 /uL 0.7-3. 1 normal Not Available [facility] ([facility]) [address] [facility], [place], [address], 02/22/2025 08:11:45 02/22/20 25 02/22/2025 CBC WITH DIFFE RENTI AL/PL ATELE T monocytes(ab solute) 0.5 x10e3 /uL 0.1-0. 9 normal Not Available [facility] ([facility]) [address], [place], [address], 02/22/2025 08:11:45 02/22/20 25 02/22/2025 CBC WITH DIFFE RENTI AL/PL ATELE T eos (absolute) 0.5 x10e3 /uL 0.0-0. 4 above high normal Not Available [facility] ([facility]) [address] [facility], [place], [address], 02/22/2025 08:11:45 02/22/20 25 02/22/2025 CBC WITH DIFFE RENTI AL/PL ATELE T baso (absolute) 0.1 x10e3 /uL 0.0-0. 2 normal Not Available [facility] ([facility]) [address] [place], [address], 02/22/2025 08:11:45 02/22/20 25 02/22/2025 CBC WITH DIFFE RENTI AL/PL ATELE T immature granulocytes 0 % not estab. Not Available [facility] ([facility]) [address], [place], [address], 02/22/2025 08:11:45 02/22/20 25 02/22/2025 CBC WITH DIFFE RENTI AL/PL ATELE T immature grans (abs) 0.0 x10e3 /uL 0.0-0. 1 Not Available [facility] ([facility]) [address] [facility], [place], [address], 02/22/2025 08:11:45 02/22/20 25 02/22/2025 CBC WITH DIFFE RENTI AL/PL ATELE T NRBC STITCH BONDING MACHINE DRAWER IN Not Available [facility] ([facility]) [address] [facility], [place], [address], 02/22/2025 08:11:45 02/22/20 25 02/22/2025 CBC WITH DIFFE RENTI AL/PL ATELE T hematology comments: STITCH BONDING MACHINE DRAWER IN Not Available [facility] ([facility]) [address] [facility], [place], [address], 02/22/2025 08:11:45 02/22/20 25 02/22/2025 COMP. METAB OLIC PANEL (14) glucose 84 mg/dL 70-99 normal Not Available [facility] ([facility]) [address] [facility], [place], [address], 02/22/2025 08:11:46 02/22/20 25 02/22/2025 COMP. METAB OLIC PANEL (14) BUN 17 mg/dL 8-27 normal Not Available [facility] ([facility]) [address] [facility], [place], [address], 02/22/2025 08:11:46 02/22/20 25 02/22/2025 COMP. METAB OLIC PANEL (14) creatinine 1.03 mg/dL 0.76-1 .27 normal Not Available [facility] ([facility]) [address] [facility], [place], [address], 02/22/2025 08:11:46 02/22/20 25 02/22/2025 COMP. METAB OLIC PANEL (14) eGFR 80 mL/mi n/1.7 3 >59 normal Not Available [facility] ([facility]) [address] [place], [address], 02/22/2025 08:11:46 02/22/20 25 02/22/2025 COMP. METAB OLIC PANEL (14) BUN/creatini ne ratio 17 10-24 normal Not Available [facility] ([facility]) [address] [place], [address], 02/22/2025 08:11:46 02/22/20 25 02/22/2025 COMP. METAB OLIC PANEL (14) sodium 141 mmol/ L 134-14 4 normal Not Available [facility] ([facility]) [address] [place], [address], 02/22/2025 08:11:46 02/22/20 25 02/22/2025 COMP. METAB OLIC PANEL (14) potassium 4.5 mmol/ L 3.5-5. 2 normal Not Available [facility] ([facility]) [address] [place], [address], 02/22/2025 08:11:46 02/22/20 25 02/22/2025 COMP. METAB OLIC PANEL (14) chloride 105 mmol/ L 96-106 normal Not Available [facility] ([place] [facility]) [address] [place], [address], 02/22/2025 08:11:46 02/22/20 25 02/22/2025 COMP. METAB OLIC PANEL (14) carbon dioxide, total 22 mmol/ L 20-29 normal Not Available [facility] ([place] [facility]) [address] [facility] [place], [address], 02/22/2025 08:11:46 02/22/20 25 02/22/2025 COMP. METAB OLIC PANEL (14) calcium 9.7 mg/dL 8.6-10 .2 normal Not Available [facility] ([place] [facility]) [address] [place], [address], 02/22/2025 08:11:46 02/22/20 25 02/22/2025 COMP. METAB OLIC PANEL (14) protein, total 7.0 g/dL 6.0-8. 5 normal Not Available [facility] ([facility]) [address] [place], [address], 02/22/2025 08:11:46 02/22/20 25 02/22/2025 COMP. METAB OLIC PANEL (14) albumin 4.0 g/dL 3.9-4. 9 normal Not Available [facility] ([facility]) [address] [place], [address], 02/22/2025 08:11:46 02/22/20 25 02/22/2025 COMP. METAB OLIC PANEL (14) globulin, total 3.0 g/dL 1.5-4. 5 Not Available [facility] ([facility]) [address] [place], [address], 02/22/2025 08:11:46 02/22/20 25 02/22/2025 COMP. METAB OLIC PANEL (14) bilirubin, total 0.5 mg/dL 0.0-1. 2 normal Not Available [facility] ([facility]) [address] [place], [address], 02/22/2025 08:11:46 02/22/20 25 02/22/2025 COMP. METAB OLIC PANEL (14) alkaline phosphatase 83 IU/L 47-123 normal Not Available [facility] ([facility] [address] [place], [address], 02/22/2025 08:11:46 02/22/20 25 02/22/2025 COMP. METAB OLIC PANEL (14) AST (SGOT) 25 IU/L 0-40 normal Not Available [facility] ([facility]) [address] [place], [address], 02/22/2025 08:11:46 02/22/20 25 02/22/2025 COMP. METAB OLIC PANEL (14) ALT (SGPT) 13 IU/L 0-44 normal Not Available [facility] ([facility]) [address] [facility], [place], [address], 02/22/2025 08:11:46 02/22/20 25 02/22/2025 LIPID PANEL cholesterol, total 103 mg/dL 100-19 9 normal Not Available [facility] ([facility]) [address] [place], [address], 02/22/2025 08:11:46 02/22/20 25 02/22/2025 LIPID PANEL triglyceride s 60 mg/dL 0-149 normal Not Available [facility] ([facility]) [address] [place], [address], 02/22/2025 08:11:46 02/22/20 25 02/22/2025 LIPID PANEL HDL cholesterol 46 mg/dL >39 normal Not Available [facility] ([facility]) [address] [place], [address], 02/22/2025 08:11:46 02/22/20 25 02/22/2025 LIPID PANEL VLDL cholesterol darling 14 mg/dL 5-40 Not Available [facility] ([facility]) [address] [place], [address], 02/22/2025 08:11:46 02/22/20 25 02/22/2025 LIPID PANEL LDL chol calc ([facility]) 43 mg/dL 0-99 Not Available [facility] ([facility]) [address] [place], [address], 02/22/2025 08:11:46 02/22/20 25 02/22/2025 LIPID PANEL LDL calc comment: 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 Not Available [facility] ([facility]) [address] [facility], [place], [address], 02/22/2025 08:11:47 02/22/20 25 02/22/2025 HEMOG LOBIN A1C hemoglobin A1C 5.4 % 4.8-5. 6 normal Predi abete s: 5.7 - 6.4 Diabe herman: >6.4 Glyce tony contr ol for adult s with diabe herman: <7.0 Not Available [facility] ([facility]) [address] [facility], [place], [address], 02/22/2025 08:11:47 02/22/20 25 02/22/2025 PROST ATE-S [...] or kits canno t be used inter hannah lozano . Resul ts violeto t be inter prete d as absol herminio evide nce of the prese nce or absen ce of john paul springer se. Not Available [facility] ([facility]) [address] [facility], [place], [address], 02/22/2025 08:11:48 02/22/20 25 02/22/2025 VITAM IN [...] and D. Jennifer orellana DC: [facility] Press . 2. Carley duvall MF, Emily rosenthal [place], Tod off-F amira i MIXON, et al. Evalu ation , treat ment, and preve ntion of vitam in D defic iency : an Endoc rine Socie ty clini darling pract ice guide line. JCEM. 2010; 96(7) :1911 -30. Not Available [facility] ([facility]) [address] [facility], [place], [address], 02/22/2025 08:11:48 Result Notes None recorded. Problems Name Problem SNOMED Code Status Onset Date Resolution Date Notes Provider Name and Address Organization Details Recorded Time Hypertensive disorder 68811420 Active 2022 YUDITH rodriguez [employer] 3 09:37:25 Hyperlipidemia 12955496 Active 2022 YUDITH rodriguez [employer] 3 09:37:33 Bradycardia 60192541 Active 2022 MELL HASSAN [address], [address], [employer] 3 10:09:39 Renal insufficiency 428693216 Active 2022 MELL HASSAN [facility] [address] [place], [address], [employer] 3 10:11:09 Body mass index 25-29 - overweight 059413280 Active 2024 Yesenia rodriguez, [employer] 5 17:37:14 Problem Notes None recorded. [...] height Body mass index (BMI) Body weight Heart rate Oxygen saturation Systolic And Diastolic Systolic And Diastolic Systolic And Diastolic Provider Name and Address Organization Details Last Updated DateTime 5 180.34 cm 26 kg/m2 20873.2 8 g 48 /min 96 % 167/80 mm[Hg] 155/72 mm[Hg] 116/68 mm[Hg] [employer] 5 08:22:51 Date Recorded Body height Body mass index (BMI) Body weight Heart rate Oxygen saturation Systolic And Diastolic Provider Name and Address Organization Details Last Updated DateTime 5 180.34 cm 25.8 kg/m2 58242.5 9 g 57 /min 95 % 135/75 mm[Hg] [employer] 5 11:31:07 Date Recorded Body height Body mass index (BMI) Body weight Heart rate Oxygen saturation Systolic And Diastolic Provider Name and Address Organization Details Last Updated DateTime 5 180.34 cm 24.8 kg/m2 55103.4 4 g 51 /min 97 % 137/76 mm[Hg] [employer] 5 10:47:05 Date Recorded Body height Body mass index (BMI) Body weight Heart rate Oxygen saturation Systolic And Diastolic Provider Name and Address Organization Details Last Updated DateTime 4 180.34 cm 25.5 kg/m2 15049.1 g 57 /min 97 % 130/75 mm[Hg] [facility] 4 09:14:15 Date Recorded Body height Body mass index (BMI) Body weight Oxygen saturation Heart rate Systolic And Diastolic Provider Name and Address Organization Details Last Updated DateTime 5 180.34 cm 24.7 kg/m2 07026.9 5 g 97 % 67 /min 138/64 mm[Hg] Yesenia Baeza [employer] 5 08:58:22 Social History Question Answer Notes LastModified by Organizat ion Details LastModified Time Tobacco Smoking Status Current Some Day Smoker YUDITHBEN GRIDER [employer]. 04/29/2022 09:32:14 Do You Have An Advance Directive? No [email or web address] Information not available 04/29/2022 Is Your Home Air Conditioned? Yes [email or web address] Information not available 04/29/2022 Are You Blind Or Do You Have Difficulty Seeing? No Information not available 04/29/2022 What Is Your Level Of Caffeine Consumption? Moderate [email or web address] Information not available 04/29/2022 Are You A Caregiver? No [email or web address] Information not available 04/29/2022 In The 14 Days Before Symptom Onset, Have You Had Close Contact With A Laboratory-confi rmed COVID-19 While That Case Was Ill? No Information not available 04/29/2022 In The 14 Days Before Symptom Onset, Have You Had Close Contact With A Person Who Is Under Investigation For COVID-19 While That Person Was Ill? No [email or web address] Information not available 04/29/2022 Have You Been To An Area Known To Be High Risk For COVID-19? No [email or web address] Information not available 04/29/2022 Are You Deaf Or Do You Have Serious Difficulty Hearing? Yes [email or web address] Information not available 04/29/2022 What Type Of Diet Are You Following? REGULAR Information not available 04/29/2022 What Is The Highest Grade Or Level Of School You Have Completed Or The Highest Degree You Have Received? [id number] Information not available 02/21/2025 Who Is Your Employer? [employer] [email or web address] Information not available 04/29/2022 Have There Been Any Changes To Your Family Or Social Situation? No [email or web address] Information not available 04/29/2022 Are There Any Guns Present In Your Home? Yes [email or web address] Information not available 04/29/2022 Which Of Your Hands Is Dominant? Left [email or web address] Information not available 04/29/2022 Do You Engage In Moderate/heavy Exercise (e.g. Brisk Walk, Jogging, Strength Training, Etc)? No Information not available 02/21/2025 How Many Times In The Past Year Have You Used An Illegal Drug Or Used A Prescription Medication For Nonmedical Reasons? 0 Information not available 02/21/2025 Where Do You Live? 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 02/21/2025 Information not available 02/21/2025 Are There Any Occupational Health Risks Where You Work? No [email or web address] Information not available 04/29/2022 What Is Your Current Pack Years? [email or web address] Information not available 02/21/2025 Do You Have Any Pets? No [email or web address] Information not available 04/29/2022 Do You Use Protection During Sex? No [email or web address] Information not available 04/29/2022 What Is Your Relationship Status? [email or web address] Information not available 04/29/2022 Have You Repeated Any Grades? No [email or web address] Information not available 04/29/2022 Do You Wear A Seatbelt When Driving Or As A Passenger? Yes Information not available 02/21/2025 Do You Use Your Seat Belt Or Car Seat Routinely? Yes [email or web address] Information not available 02/09/2023 Are You Sexually Active? Yes [email or web address] Information not available 04/29/2022 Do You Have Any Siblings? Yes [email or web address] Information not available 04/29/2022 Do You Have Smoke And Carbon Monoxide Detectors In Your Home? Yes [email or web address] Information not available 04/29/2022 At What Age Did You Start Smoking Tobacco? 18 Information not available 02/21/2025 Are You Passively Exposed To Smoke? No Information not available 02/21/2025 Are There Any Smokers In Your House? Yes [email or web address] Information not available 04/29/2022 How Much Tobacco Do You Smoke? 1 PPW Information not available 02/21/2025 What Types Of Sporting Activities Do You Participate In? None Information not available 02/21/2025 Do You Use Sunscreen Routinely? No [email or web address] Information not available 04/29/2022 Has Tobacco Cessation Counseling Been Provided? Yes Information not available 10/25/2022 On What Date Was Tobacco Cessation Counseling Provided? 02/21/2025 Information not available 02/21/2025 How Many Years Have You Smoked Tobacco? 30 Information not available 02/21/2025 Have You Recently Traveled Abroad? No Information not available 04/29/2022 Do You Have Difficulty Walking Or Climbing Stairs? No [email or web address] Information not available 04/29/2022 Are You Currently In School? No [email or web address] Information not available 04/29/2022 What Contraceptive Method [...] use any illicit or recreational drugs? No [email or web address] Information not available 04/29/2022 Do you feel safe in your relationship? Yes Information n ot available 02/21/2025 Do you or have you ever used any other forms of tobacco or nicotine? No Information not available 02/21/2025 What is your level of alcohol consumption? None Information not available 04/29/2022 Are you currently employed? Yes [email or web address] Information not available 04/29/2022 Do you have transportation difficulties? No [email or web address] Information not available 04/29/2022 Are you able to walk independently without assistance or assistive devices? YESWOREST [email or web address] Information not available 04/29/2022 Do you have difficulty doing errands alone? No [email or web address] Information not available 04/29/2022 Are you able to care for yourself independently? Yes [email or web address] Information not available 04/29/2022 Do you have difficulty dressing, bathing, grooming, or toileting? No [email or web address] Information not available 04/29/2022 Mental Status Question Answer Note LastModified by Organizat ion Details LastModified Time Do you feel stressed (tense, restless, nervous, or anxious, or unable to sleep at night)? [id number] Information not available 02/21/2025 Do you have difficulty concentrating, remembering or making decisions? No [email or web address] Information no t available 04/29/2022 Family History Relationship Description Onset Age of this Age Resolved Age Notes LastModified by Organization Details LastModified Time Mother Goiter due to thyroiditis [email or web address] Not available 09:38:28 Medical History Condition Response Hypertension Y Immunizations Vaccine Type Date Status Note Provider Allen rivera and Address Organization Details Recorded Time Influenza, split virus, trivalent, PF 02/21/2025 completed Yesenia rodriguez [facility] [employer] 02/21/2025 10:37:45 Past Encounters Encounter ID Performer Location Encounter Start Date Encounter Closed Date Diagnosis/Indication Diagnosis SNOMED-CT Code Diagnosis ICD10 Code Diagnosis IMO Codes Diagnosis Note [id number] Ann Roger [address] [address] 04/29/2022 09:30:28 04/29/2022 10:19:36 Essential hypertension 74645842 I10 Hyperlipidemia 41227212 E78.5 Hypothyroidism 04311544 E03.9 Body mass index 25-29 - overweight 606197239 Z68.26 [id number] Nina Platt[address] [address] 05/04/2022 17:03:55 05/04/2022 17:11:40 Hypertensive disorder 98386559 I10 [id number] [place] [address] 07/26/2022 08:35:27 07/26/2022 09:32:02 Essential hypertension 21972429 I10 Hypothyroidism 03029638 E03.9 Hyperlipidemia 29257792 E78.5 Acute sinusitis 19816394 J01.90 Body mass index 25-29 - overweight 771338528 Z68.26 [id number] [place] [address] 10/25/2022 08:49:48 10/25/2022 09:16:44 Hyperlipidemia 68991337 E78.5 Hypertensive disorder 38 252781 I10 Hypothyroidism 34751460 E03.9 Essential hypertension 26895530 I10 Pruritic rash 80829351 L 28.2 Body mass index 20-24 - normal 733071321 Z68.24 [id number] [place] [address] 02/09/2023 13:10:07 02/09/2023 14:02:06 Essential hypertension 48448299 I10 Hypothyroidism 39416527 E03.9 Hyperlipidemia 48481577 E78.5 Bradycardia 39019775 R00 .1 Body mass index 20-24 - normal 102775763 Z68.24 [id number] [place] [address] 05/18/2023 14:12:18 05/18/2023 14:46:27 Hypothyroidism 68765028 E03.9 Hyperlipidemia 65920748 E78.5 Essential hypertension 42255796 I10 Body mass index 20-24 - normal 871097797 Z68.24 [id number] Ann Roger [place] [address] 08/17/2023 10:08:09 08/17/2023 11:04:08 Essential hypertension 86423897 I10 Hypothyroidism 41345127 E03.9 Hyperlipidemia 48561759 E78.5 Pruritic rash 07316079 L 28.2 Body mass index 20-24 - normal 933064161 Z68.24 [id number] [place] [address] 11/17/2023 08:22:24 11/17/2023 09:24:14 Fatigue 55925379 R53.83 Hyperlipidemia 66105495 E78.5 Vitamin D deficiency 347 76556 E55.9 Nocturia 852282418 R35.1 Cramp in lower limb 4499 90705 R25.2 Body mass index 25-29 - overweight 737576589 Z68.26 Essential hypertension 30934347 I10 Hypothyroidism 16234199 E03.9 [id number] [place] [address] 02/19/2024 08:51:53 02/19/2024 09:29:15 Essential hypertension 22802787 I10 Hypothyroidism 82169933 E03.9 Body mass index 25-29 - overweight 645784134 Z68.26 [id number] [place] [address] 05/21/2024 07:58:54 05/21/2024 08:48:03 Fatigue 36405648 R53.83 Hyperlipidemia 85997037 E78.5 Hyperglycemia 87912568 R 73.9 Nocturia 991368807 R35.1 Vitamin D deficiency 347 30767 E55.9 Vitamin B deficiency 479 95089 E53.9 Essential hypertension 33160906 I10 Hypothyroidism 18362705 E03.9 Pruritic rash 63779898 L 28.2 Body mass index 25-29 - overweight 815959160 Z68.26 [id number] [place] [address] 0 08/22/2024 11:19:12 08/22/2024 11:53:12 Essential hypertension 71467087 I10 Hypothyroidism 21870009 E03.9 Vitamin D deficiency 347 74150 E55.9 Overweight in adulthood with body mass index of 25 or more but less than 30 172642531 Z68.25 195575 [id number] Ann Roger[address] 11/22/2024 10:25:35 11/22/2024 11:09:55 Body mass index 25-29 - overweight 042593109 E66.3 56692450 HIV screening 765930858 Z11.4 93402064 Viral scre ening status 275619670 Z11.59 439537 History an d physical examination, annual for health maintenance 22562065 Z00.00 1347228575 Active or passive immunization 305310344 Z23 Pt declined Shingles and pneumococc al vaccine Screening for cardiovascular system disease 932716473 Z13.6 Screening for malignant neoplasm of colon 627601462 Z12.11 General ex amination of patient 432159214 Z00.00 81738931 Abdominal aortic aneurysm screening 018743675 Z13.6 235403 Essential hypertension 70167829 I10 Hypothyroidism 36008798 E03.9 Vitamin D deficiency 347 86267 E55.9 [id number] [place] [address] 02/21/2025 08:51:20 02/21/2025 09:57:21 Requires influenza virus vaccination 626732091 Z23 1140556 Fatigue 63032150 R53.83 2456553 Mixed hyperlipidemia 267 825647 E78.2 93780 Hyperglycemia 69997593 R 73.9 59855 Vitamin D deficiency 347 46262 E55.9 66554 Cobalamin deficiency 190 245769 E53.8 39271 Nocturia 902972078 R35.1 63605 Essential hypertension 98578157 I10 Hypothyroidism 46720206 E03.9 Body mass index 20-24 - normal 718355696 Z68.24 72059817 Health Concerns Section Related Observation LastModified by Organization Detai ls LastModified Time None Recorded Concern Status LastModified by Organization Details LastModified Time None Recorded Advance Directives Directive N: Payers Insurance Date Sequence Insurance Name Policy Number Policy Frederick Covered Member ID Frederick Member ID Guarantor Name 02/24/2025 1 [facility] [id number] Asa Galeana [id number] Asa Galeana 11/20/2023 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 pt states hes doing well on current medication regime and has no new complaints today. Ann Roger APRN [address] [place], [address], [employer], [employer]. 02/19/2024 09:38:13 05/21/2024 text/html 68 year old male presents for chronic disease f/u. Denies acute concerns today. States he is taking all medication as prescribed without AE.He last saw cardiology 2 months ago and was started on repatha inj. States he has a f/u in 4 months. He would like to see if cholestrol has improved. Will plan to do labs today and refill all medications. Pt agrees with plan Ann Roger APRN [address] [place], [address], [employer] 05/21/2024 09:32:11 08/22/2024 text/html pt here today for medication refills. pt states hes doing well on current medication regime and has no new complaints today. Ann Roger APRN [address] [place], [address], [employer] 08/22/2024 12:11:44 11/22/2024 text/html pt here today for AWV and medication refills. pt states hes doing well on current medication regime and has no new complaints today. pt seen cardio in august and had labs and WNL. will draw labs at next visit. Ann Roger APRN [address] [place], [address], [employer] 11/22/2024 11:16:35 02/21/2025 text/html pt here today for medication refills. pt states hes doing well on current medication regime. pt states that he has had a runny nose for the past few days but has been taking OTC allergy med and that has been helping. he will come back if he has worsening symptoms. Ann Roger APRN [address] [place], [address], [facility] [employer] 02/21/2025 11:51:51
--- NOTE | 2025-03-27 08:00 | CA_ITS ---
FINAL REPORT TECHNIQUE: Elkins scale, color and spectral doppler images of the bilateral carotid arteries were obtained. CLINICAL HISTORY: KEVIN,HTN,SMOKER,HLD COMPARISON: None FINDINGS: Peak systolic velocity in the right internal carotid artery is 89 cm/sec. The internal carotid to common carotid artery ratio is 1.8. There is no significant carotid artery stenosis and mild to moderate plaque formation. The right vertebral artery is normal in direction. Peak systolic velocity in the left internal carotid artery is 69 cm/sec. The internal carotid to common carotid artery ratio is 0.9. There is no significant carotid artery stenosis and mild to moderate plaque formation. The left vertebral artery is normal in direction. IMPRESSION: No ultrasound evidence of hemodynamically significant carotid artery stenosis. Normal peak systolic velocities and normal internal to common carotid artery ratios bilaterally. Mild to moderate plaque is present in the carotid arteries bilaterally. Reviewed, Interpreted and Dictated by Abdias Mendes MD Transcribed by Deborah Woodall Authenticated and [facility]
== END 2025-03-27 23:59 | disposition home or self-care (01) ==
LOC: RT 07:37
PROVIDERS: PCP Nurse Practitioner; Visit Provider Nurse Practitioner Family
DX: I65.23 Occlusion and stenosis of bilateral carotid arteries (principal)
CPT/HCPCS: 93880